=== PATIENT | female | born 1945 | race Caucasian/White ===

== ENCOUNTER 2018-11-23 12:58 | Outpatient (CLI) | payer MEDICARE ==
--- NOTE | 2018-11-23 14:26 | RAD ---
TWO VIEWS CHEST: Comparison: 09-09-16 History: Dyspnea. FINDINGS: Two views of the chest show normal sized cardiomediastinal silhouette. There is no evidence of consol idation, mass, or pleural effusion. The bones are unremarkable. IMPRESSION: No evidence of acute cardiopulmonary disease. POS: [facility]
== END 2018-11-23 12:59 | disposition home or self-care (01) ==
LOC: RAD 12:58
PROVIDERS: ATTEND Internal Medicine Pulmonary Disease
DX: R06.00 Dyspnea, unspecified (principal)
CPT/HCPCS: 71046

== ENCOUNTER 2019-02-01 12:37 | Outpatient (CLI) | payer MEDICARE ==
[2019-02-01 14:17] LABS: ALT (SGPT) 23 U/L (8-55); AST (SGOT) 30 U/L (5-34); Albumin 4.1 g/dL (3.4-4.8); Alkaline Phosphatase 104 U/L (40-150); Anion Gap 15 mmol/L (10-20); BUN (Urea Nitrogen) 16 mg/dL (9.8-20.1); Bilirubin, Total 1.3 mg/dL (0.2-1.2); Calc. Creatinine Clearance 0 mL/min (70-130); Calcium 9.2 mg/dL (7.8-10.44); Carbon Dioxide 31 mmol/L (23-31); Chloride 101 mmol/L (98-107); Estimated GFR-MDRD 54; Globulin 2.7 g/dL (2.4-3.5); Glucose 117 mg/dL (83-110); Potassium 4.6 mmol/L (3.5-5.1); Protein, Total 6.8 g/dL (6.0-8.3); Sodium 142 mmol/L (136-145)
--- NOTE | 2019-02-01 14:27 | RAD ---
CHEST 1 VIEW: DATE: 02/01/2019. TIME: 1:41 p.m. HISTORY: Preoperative evaluation. FINDINGS: Comparison is made with the exam of 11/23/2018. The heart size is normal. The lungs are expanded without focal areas of consolidation, pneumothorace s, or pleural effusions. IMPRESSION: No radiographic evidence of acute cardiopulmonary process. POS: [facility]
[2019-02-01 14:48] LABS: #Eosinphils 0.3 thou/uL (0.0-0.7); #Lymphocytes 0.8 thou/uL (1.20-3.40); #Monocytes 0.4 thou/uL (0.11-0.59); #Neutrophils 3.1 thou/uL (1.40-6.50); %Basophils 0.9 % (0.0-1.0); %Eosinophils 6.6 % (0.0-10.0); %Lymphocytes 17.9 % (21.0-51.0); %Monocytes 7.8 % (0.0-10.0); %Neutrophils 66.8 % (42.0-75.0); Anisocytosis SLIGHT = 6-15 cells (100X) (0-5/hpf); Elliptocytes SLIGHT = 2-5 cells (100X) (0-1/hpf); Hemoglobin 10.7 g/dL (12.0-16.0); Hypochromia SLIGHT = 6-15 cells (100X) (0-5/hpf); MDiff Complete? YES; Mean Corpuscular Hemoglobin 23.4 pg (27.0-31.0); Mean Corpuscular Volume 78.1 fL (78.0-98.0); Mean Platelet Volume 8.5 fL (7.4-10.4); Platelet Count 227 thou/uL (130-400); Platelet Morphology Comment Appears Adequate; Poikilocytosis SLIGHT = 6-15 cells (100X) (0-5/hpf); RBC Distribution Width 14.3 % (11.5-14.5); Red Blood Cell (RBC) Count 4.57 mill/uL (4.20-5.40); White Blood Cell (WBC) Count 4.6 thou/uL (4.8-10.8)
== END 2019-02-01 12:38 | disposition home or self-care (01) ==
LOC: LABBT 12:37
PROVIDERS: ATTEND Internal Medicine Cardiovascular Disease
DX: Z01.818 Encounter for other preprocedural examination (principal); R94.39 Abnormal result of other cardiovascular function study
CPT/HCPCS: 71045; 80053; 85025; 93005; 93010

== ENCOUNTER → 2019-02-15 | Day surgery (SDC) | payer MEDICARE ==
[2019-02-01 12:51] VITALS: BMI 51.5
[~2019-02-15] MED LIST: Bivalirudin 250 MG VIAL ONE; Fentanyl 100 MCG/2 ML VIAL ONE; Heparin 10,000 UNITS/1 ML VIAL ONE; Iopamidol 370 76% 100 ML VIAL ONE; Iopamidol 370 76% 50 ML VIAL FS ONE; Mag-Al 1200 mg/1200 mg/30 ML UDCUP ONE; Mag-Al 1200 mg/1200 mg/30 ML UDCUP PO SCH; Nitroglycerin 0.4 MG TAB (25 Tab Bottle) ONE; Nitroglycerin 100MG/250ML BOT 250 ML ONE
== END ==
LOC: CCL 05:58
PROVIDERS: ATTEND Internal Medicine Cardiovascular Disease
PROC: 4A023N7 Measurement of Cardiac Sampling and Pressure, Left Heart, Percutaneous Approach (ICD-10-PCS; principal; 2019-02-15)
PROC: B2101ZZ Fluoroscopy of Single Coronary Artery using Low Osmolar Contrast (ICD-10-PCS; 2019-02-15)
DX: I25.10 Atherosclerotic heart disease of native coronary artery without angina pectoris (principal); I10 Essential (primary) hypertension; E11.9 Type 2 diabetes mellitus without complications; G47.30 Sleep apnea, unspecified; E66.01 Morbid (severe) obesity due to excess calories; Z68.43 Body mass index [BMI] 50.0-59.9, adult; Z88.5 Allergy status to narcotic agent; Z88.8 Allergy status to other drugs, medicaments and biological substances; Z99.89 Dependence on other enabling machines and devices; Z79.84 Long term (current) use of oral hypoglycemic drugs; Z79.899 Other long term (current) drug therapy
CPT/HCPCS: 76942; 85347; 93458; 93571; C1769; C1887; J0153; J0583; J1644; J3010; Q9967

== ENCOUNTER 2019-06-01 09:31 | Day surgery (SDC) | payer MEDICARE ==
[2019-05-31 14:07] VITALS: BMI 53.0
--- NOTE | 2019-06-01 13:50 | OP ---
DATE OF PROCEDURE: 06/01/2019 PROCEDURES PERFORMED: Esophagogastroduodenoscopy with Howard dilatation. PREMEDICATION: Given by Anesthesiology Department. PREPROCEDURE DIAGNOSIS: Dysphagia. POSTPROCEDURE DIAGNOSES: 1. Visually normal esophagus, status post dilatation with 54 and 58-Icelandic Howard dilator. 2. Status post gastric sleeve. 3. Otherwise, normal upper endoscopy. DESCRIPTION OF PROCEDURE: Written consents were obtained prior to procedure. After adequate sedation, forward-viewing endoscope was advanced down the hypopharynx under direct vision. The esophagus appeared normal. The GE junction was located at 36 cm from incisors. The stomach was entered. The change of gastric sleeve was encountered with normal mucosa. The antrum appears normal with patent pylorus. The duodenum appeared normal including both the second and third portion in the duodenal bulb. Retroflexion in the antrum did not show any abnormality. The endoscope was removed. Dilation was then performed using a 54-Icelandic Howard dilator. Repeat endoscopy did not show any complication. Dilation was then performed using a 58-Icelandic Howard. Repeat endoscopy showed some mucosal erythema at 22 cm from the incisors, but no other change or tear. The instrument was then fully removed. The patient tolerated the procedure well. ASSESSMENT: 1. Normal esophagus, status post dilatation using 54 and 58-Icelandic Howard dilators. 2. Status post gastric sleeve, otherwise normal upper endoscopy. PLAN: Follow up in 4 to 6 weeks. Job ID: [id number]
[2019-06-01] MEDS ORDERED: PROPOFOL 200 MG/20 ML VIAL ONE (16:16)
[2019-06-01] MEDS ORDERED: Lidocaine 1% PF 5 ML VIAL ONE (16:16)
== END 2019-06-01 12:25 | disposition home or self-care (01) ==
LOC: SDC 09:31
PROVIDERS: ATTEND Internal Medicine Gastroenterology
PROC: 0D757ZZ Dilation of Esophagus, Via Natural or Artificial Opening (ICD-10-PCS; principal; 2019-06-01)
PROC: 0DJ08ZZ Inspection of Upper Intestinal Tract, Via Natural or Artificial Opening Endoscopic (ICD-10-PCS; 2019-06-01)
DX: R13.10 Dysphagia, unspecified (principal); K21.9 Gastro-esophageal reflux disease without esophagitis; I10 Essential (primary) hypertension; J45.909 Unspecified asthma, uncomplicated; F41.9 Anxiety disorder, unspecified; M19.90 Unspecified osteoarthritis, unspecified site; G47.30 Sleep apnea, unspecified; R06.00 Dyspnea, unspecified; Z98.84 Bariatric surgery status; Z79.899 Other long term (current) drug therapy; Z88.5 Allergy status to narcotic agent; Z88.7 Allergy status to serum and vaccine; Z88.8 Allergy status to other drugs, medicaments and biological substances; Z91.048 Other nonmedicinal substance allergy status
CPT/HCPCS: J2001; J2704

== ENCOUNTER 2019-09-06 08:05 | Outpatient (CLI) | payer MEDICARE ==
--- NOTE | 2019-09-06 08:24 | RAD ---
EXAM: Chest 2 views: HISTORY: Cough and fever COMPARISON: 05/02/2013 FINDINGS: There is a normal-sized cardiomediastinal silhouette. Perihilar prominence is stable and likely repr esents the normal pulmonary vasculature for this patient. There is no evidence of consolidation, mass, or pleural effusion. The bones are unremarkable. IMPRESSION: No evidence of acute cardiopulmonary disease
== END 2019-09-06 08:06 | disposition home or self-care (01) ==
LOC: BICRAD 08:05
PROVIDERS: ATTEND Family Medicine
DX: R50.9 Fever, unspecified (principal)
CPT/HCPCS: 71046

== ENCOUNTER 2020-03-28 15:34 | Outpatient (CLI) | payer MEDICARE, OTHER ==
--- NOTE | 2020-03-28 16:04 | ULT ---
EXAM: Right lower extremity venous Doppler US HISTORY: Right lower extremity edema and pain FINDINGS: Grayscale, color-flow, Doppler evaluation, spectral analysis of the right lower extremity venous stru ctures is performed with 2-D imaging. The right common femoral, superficial femoral, popliteal, posterior tibial, proximal greater saphenous and profunda femoral veins are imaged. There is normal luminal compressibility, flow, and augmentation the visualized deep venous structures of the right lower extremity. IMPRESSION: No evidence of a deep vein thrombosis in the right lower extremity.
== END 2020-03-28 15:35 | disposition home or self-care (01) ==
LOC: SCSULT 15:34
PROVIDERS: ATTEND Orthopaedic Surgery
DX: I87.2 Venous insufficiency (chronic) (peripheral) (principal)

== ENCOUNTER 2020-12-25 09:20 | Outpatient (CLI) | payer MEDICARE, OTHER | END 2020-12-25 09:21 | disposition home or self-care (01) | LOC: BICMAMMO 09:20 | PROVIDERS: ATTEND Family Medicine | DX: R92.8 Other abnormal and inconclusive findings on diagnostic imaging of breast (principal); R92.1 Mammographic calcification found on diagnostic imaging of breast; Q83.9 Congenital malformation of breast, unspecified | CPT/HCPCS: 77066; G0279; 77063; 77067 ==

== ENCOUNTER 2022-05-02 14:54 | Outpatient (CLI) | payer MEDICARE | END 2022-05-02 14:55 | disposition home or self-care (01) | LOC: BICMAMMO 14:54 | PROVIDERS: ATTEND Family Medicine | DX: R92.8 Other abnormal and inconclusive findings on diagnostic imaging of breast (principal) | CPT/HCPCS: 77066; G0279 ==

== ENCOUNTER 2022-10-15 10:16 | Day surgery (SDC) | payer MEDICARE ==
[2022-10-14 11:14] VITALS: BMI 48.2
[2022-10-15] MEDS ORDERED: Lidocaine 1% PF 5 ML VIAL ONE (12:16)
[2022-10-15] MEDS ORDERED: PROPOFOL 200 MG/20 ML VIAL ONE (12:16)
== END 2022-10-15 14:01 | disposition home or self-care (01) ==
LOC: SDC 10:16
PROVIDERS: ATTEND Internal Medicine Gastroenterology
PROC: 0DB98ZX Excision of Duodenum, Via Natural or Artificial Opening Endoscopic, Diagnostic (ICD-10-PCS; principal; 2022-10-15)
PROC: 0D737ZZ Dilation of Lower Esophagus, Via Natural or Artificial Opening (ICD-10-PCS; 2022-10-15)
PROC: 0DBG8ZX Excision of Left Large Intestine, Via Natural or Artificial Opening Endoscopic, Diagnostic (ICD-10-PCS; 2022-10-15)
PROC: 0DBF8ZX Excision of Right Large Intestine, Via Natural or Artificial Opening Endoscopic, Diagnostic (ICD-10-PCS; 2022-10-15)
DX: D50.9 Iron deficiency anemia, unspecified (principal); K57.31 Diverticulosis of large intestine without perforation or abscess with bleeding; K64.1 Second degree hemorrhoids; K22.2 Esophageal obstruction; K44.9 Diaphragmatic hernia without obstruction or gangrene; R19.7 Diarrhea, unspecified; M19.90 Unspecified osteoarthritis, unspecified site; J45.909 Unspecified asthma, uncomplicated; K21.9 Gastro-esophageal reflux disease without esophagitis; I10 Essential (primary) hypertension; G47.33 Obstructive sleep apnea (adult) (pediatric); E03.9 Hypothyroidism, unspecified; E66.01 Morbid (severe) obesity due to excess calories; Z68.42 Body mass index [BMI] 45.0-49.9, adult; Z79.890 Hormone replacement therapy; Z79.899 Other long term (current) drug therapy; Z88.5 Allergy status to narcotic agent; Z88.7 Allergy status to serum and vaccine; Z91.048 Other nonmedicinal substance allergy status; Z98.84 Bariatric surgery status
CPT/HCPCS: 88305; J2704

== ENCOUNTER 2022-10-27 18:19 | Observation (INO) | payer MEDICARE ==
[2022-10-27] MEDS ORDERED: Fentanyl 100 MCG/2 ML VIAL ONE (18:54)
[2022-10-27 19:11] LABS: #Eosinphils 0.1 thou/uL (0.0-0.7); #Lymphocytes 0.6 thou/uL (1.20-3.40); #Monocytes 0.5 thou/uL (0.11-0.59); #Neutrophils 7.7 thou/uL (1.40-6.50); %Basophils 0.1 % (0.0-1.0); %Eosinophils 0.8 % (0.0-10.0); %Lymphocytes 7.1 % (21.0-51.0); %Monocytes 5.2 % (0.0-10.0); %Neutrophils 86.7 % (42.0-75.0); Hemoglobin 12.9 g/dL (12.0-16.0); Mean Corpuscular HGB CONC 31.6 g/dL (32.0-36.0); Mean Corpuscular Hemoglobin 26.2 pg (27.0-31.0); Mean Corpuscular Volume 83.1 fl (78.0-98.0); Mean Platelet Volume 9.2 fL (7.4-10.4); Platelet Count 186 10x3/uL (130-400); RBC Distribution Width 20.7 % (11.5-14.5); Red Blood Cell (RBC) Count 4.93 mill/uL (4.20-5.40); White Blood Cell (WBC) Count 8.9 10x3/uL (4.8-10.8)
[2022-10-27 19:27] LABS: ALT (SGPT) 18 U/L (8-55); AST (SGOT) 19 U/L (5-34); Alkaline Phosphatase 111 U/L (40-110); Anion Gap 16 mmol/L (10-20); BUN (Urea Nitrogen) 19 mg/dL (9.8-20.1); Bilirubin, Total 1.7 mg/dL (0.2-1.2); Calc. Creatinine Clearance 0 mL/min (70-130); Calcium 9.2 mg/dL (7.8-10.44); Carbon Dioxide 28 mmol/L (23-31); Chloride 99 mmol/L (98-107); Estimated GFR 61; Globulin 2.9 g/dL (2.4-3.5); Glucose 142 mg/dL (83-110); Potassium 4.6 mmol/L (3.5-5.1); Protein, Total 6.9 g/dL (5.8-8.1); Sodium 138 mmol/L (136-145)
[2022-10-27 19:49] LABS: CKMB 3.5 ng/mL (0-6.6)
[2022-10-27 20:44] LABS: SARS-CoV-2 NAA Rapid Test Not Detected (NotDetected)
[2022-10-27 21:31] LABS: Troponin I 0.047 ng/mL (< 0.028)
[2022-10-27 21:52] LABS: Bilirubin 2+ (Negative); Blood, Urine Negative (Negative); Clarity Clear (Clear); Glucose, Urine (Dipstick) Normal (Negative); Ketone, Urine Negative (Negative); Leukocyte Negative Leu/uL (Negative); Nitrite Negative (Negative); Protein, Urine (Dipstick) 20 mg/dL (Neg-Trace); Specific Gravity, Urine 1.023 (1.002-1.036); Urobilinogen 3 mg/dL (Less than 2)
[2022-10-27] MEDS ORDERED: hydrALAZINE 20 MG/ML VIAL ONE (22:29)
[2022-10-27] MEDS ORDERED: hydrOXYzine 25 MG TAB PO PRN (22:57)
[2022-10-27] MEDS ORDERED: Bisacodyl 5 MG TAB PO PRN (22:59)
[2022-10-27] MEDS ORDERED: Senokot S 8.6-50 MG TAB PO PRN (22:59)
[2022-10-27] MEDS ORDERED: Ondansetron PF 4 MG/2 ML Vial IVP PRN (23:00)
[2022-10-27] MEDS ORDERED: Acetaminophen 325 MG TAB PO PRN (23:00)
[2022-10-27] MEDS ORDERED: Ondansetron ODT 4 MG TAB SL PRN (23:00)
[2022-10-27] MEDS ORDERED: Loratadine 10 MG TAB PO PRN (23:03)
[2022-10-28] MEDS ORDERED: Acetaminophen 325 MG TAB ONE (01:58)
[2022-10-28 06:55] LABS: #Eosinphils 0.1 thou/uL (0.0-0.7); #Lymphocytes 0.8 thou/uL (1.20-3.40); #Monocytes 0.5 thou/uL (0.11-0.59); #Neutrophils 4.3 thou/uL (1.40-6.50); %Basophils 0.3 % (0.0-1.0); %Eosinophils 2.3 % (0.0-10.0); %Lymphocytes 14.5 % (21.0-51.0); %Neutrophils 73.9 % (42.0-75.0); Hemoglobin 11.1 g/dL (12.0-16.0); Mean Corpuscular Hemoglobin 26.7 pg (27.0-31.0); Mean Corpuscular Volume 83.5 fl (78.0-98.0); Mean Platelet Volume 10.1 fL (7.4-10.4); Platelet Count 153 10x3/uL (130-400); RBC Distribution Width 20.9 % (11.5-14.5); Red Blood Cell (RBC) Count 4.17 mill/uL (4.20-5.40); White Blood Cell (WBC) Count 5.8 10x3/uL (4.8-10.8)
[2022-10-28 07:09] LABS: Anion Gap 13 mmol/L (10-20); BUN (Urea Nitrogen) 20 mg/dL (9.8-20.1); Calc. Creatinine Clearance 0 mL/min (70-130); Calcium 8.6 mg/dL (7.8-10.44); Carbon Dioxide 28 mmol/L (23-31); Chloride 100 mmol/L (98-107); Estimated GFR 75; Glucose 126 mg/dL (83-110); Potassium 3.9 mmol/L (3.5-5.1); Sodium 137 mmol/L (136-145)
[2022-10-28] MEDS: Mometasone 100 MCG/Formoterol 5 MCG 120 PUFF INHALER INH SCH ×2 (07:11→19:04)
[2022-10-28] MEDS: Hydrochlorothiazide 25 MG TAB PO SCH (10:25)
[2022-10-28] MEDS: Levothyroxine Sodium 125 MCG TAB PO SCH (10:25)
[2022-10-28] MEDS: Venlafaxine HCl XR 75 MG CAP PO SCH (10:25)
[2022-10-28 15:59] VITALS: BMI 48.2
[2022-10-28] MEDS ORDERED: traMADol HCl 50 MG TAB ONE (16:46)
[2022-10-28] MEDS: traMADol HCl 50 MG TAB PO PRN (16:48)
[2022-10-28] MEDS ORDERED: Acetaminophen 500 MG TAB PO SCH (21:45)
[2022-10-28] MEDS ORDERED: Acetaminophen 325 MG TAB PO PRN (21:45)
[2022-10-28] MEDS: Cyclobenzaprine 10 MG TAB PO SCH (22:02)
[2022-10-28] MEDS: Atorvastatin Calcium 20 MG TAB PO SCH (22:04)
[2022-10-28] MEDS: clonazePAM 0.5 MG TAB PO SCH (22:04)
[2022-10-28] MEDS ORDERED: cloNIDine 0.1 MG TAB PO SCH (23:30)
[2022-10-28] MEDS ORDERED: HYDROcodone/Acetaminophen 5/325 mg Tablet PO SCH (23:30)
[2022-10-29] MEDS ORDERED: hydrALAZINE 20 MG/ML VIAL SLOW IVP SCH (02:45)
[2022-10-29] MEDS: Levothyroxine Sodium 125 MCG TAB PO SCH (05:31)
[2022-10-29] MEDS: traMADol HCl 50 MG TAB PO PRN ×3 (05:31→20:34)
[2022-10-29] MEDS: Mometasone 100 MCG/Formoterol 5 MCG 120 PUFF INHALER INH SCH ×2 (07:30→19:10)
[2022-10-29] MEDS ORDERED: hydrALAZINE 20 MG/ML VIAL SLOW IVP PRN (07:53)
[2022-10-29] MEDS ORDERED: Morphine 2 MG/ML VIAL SLOW IVP PRN (08:00)
[2022-10-29] MEDS: Hydrochlorothiazide 25 MG TAB PO SCH (10:30)
[2022-10-29] MEDS: Venlafaxine HCl XR 75 MG CAP PO SCH (10:30)
[2022-10-29] MEDS ORDERED: HYDROcodone/Acetaminophen 5/325 mg Tablet PO PRN (15:00)
[2022-10-29] MEDS ORDERED: Amlodipine 10 MG TAB PO SCH (15:00)
[2022-10-29] MEDS: Atorvastatin Calcium 20 MG TAB PO SCH (20:34)
[2022-10-29] MEDS: Cyclobenzaprine 10 MG TAB PO SCH (20:34)
[2022-10-29] MEDS: clonazePAM 0.5 MG TAB PO SCH (20:36)
[2022-10-30] MEDS: Levothyroxine Sodium 125 MCG TAB PO SCH (05:30)
[2022-10-30] MEDS: Mometasone 100 MCG/Formoterol 5 MCG 120 PUFF INHALER INH SCH ×2 (07:25→08:02)
[2022-10-30] MEDS: traMADol HCl 50 MG TAB PO PRN (07:33)
[2022-10-30] MEDS: Hydrochlorothiazide 25 MG TAB PO SCH (09:06)
[2022-10-30] MEDS: Venlafaxine HCl XR 75 MG CAP PO SCH (09:06)
[2022-10-30] MEDS ORDERED: Amlodipine 10 MG TAB PO SCH (11:45)
[2022-10-30 16:33] VITALS: BP 139/71; TEMP 97.2
[2022-10-31] MEDS ORDERED: Amlodipine 10 MG TAB PO SCH (09:00)
== END 2022-10-30 18:58 | disposition home or self-care (01) ==
LOC: ERS 18:19 → ERHOLD 22:12 → 2NO 22:25
PROVIDERS: ADMIT Internal Medicine; ATTEND Internal Medicine
DX: G89.29 Other chronic pain (principal); M54.50 Low back pain, unspecified; M47.816 Spondylosis without myelopathy or radiculopathy, lumbar region; M17.0 Bilateral primary osteoarthritis of knee; R29.6 Repeated falls; I10 Essential (primary) hypertension; R77.8 Other specified abnormalities of plasma proteins; E78.5 Hyperlipidemia, unspecified; F32.A Depression, unspecified; E03.9 Hypothyroidism, unspecified; J45.909 Unspecified asthma, uncomplicated; G47.33 Obstructive sleep apnea (adult) (pediatric); E11.9 Type 2 diabetes mellitus without complications; M48.061 Spinal stenosis, lumbar region without neurogenic claudication; M81.0 Age-related osteoporosis without current pathological fracture; E66.01 Morbid (severe) obesity due to excess calories; Z68.42 Body mass index [BMI] 45.0-49.9, adult; Z79.899 Other long term (current) drug therapy; Z88.5 Allergy status to narcotic agent; Z88.7 Allergy status to serum and vaccine; Z91.048 Other nonmedicinal substance allergy status; Z20.822 Contact with and (suspected) exposure to COVID-19; W19.XXXA Unspecified fall, initial encounter
CPT/HCPCS: 0240U; 51701; 70450; 71045; 72131; 80048; 80053; 81003; 82553; 83605; 83880; 84443; 84484 ×2; 85025 ×2; 87040; 87086; 93005; 94640 ×3; 94760; 96374; 96375; 97110; 97116 ×2; 97530; 97535; 99285; 36415; 96372; G0378; J0360; J1650; J3010

== ENCOUNTER 2023-02-03 10:12 | Outpatient (CLI) | payer MEDICARE | END 2023-02-03 10:13 | disposition home or self-care (01) | LOC: RAD 10:12 | PROVIDERS: ATTEND Internal Medicine Critical Care Medicine | DX: R06.00 Dyspnea, unspecified (principal) | CPT/HCPCS: 71046 ==

== ENCOUNTER 2023-05-15 13:49 | Outpatient (CLI) | payer MEDICARE | END 2023-05-15 13:50 | disposition home or self-care (01) | LOC: ULT 13:49 | PROVIDERS: ATTEND Family Medicine | DX: R22.42 Localized swelling, mass and lump, left lower limb (principal) | CPT/HCPCS: 76999 ==

== ENCOUNTER 2023-10-22 16:00 | Outpatient (CLI) | payer MEDICARE | END 2023-10-22 16:01 | disposition home or self-care (01) | LOC: SLEEPLAB 16:00 | PROVIDERS: ATTEND Internal Medicine Critical Care Medicine | DX: G47.33 Obstructive sleep apnea (adult) (pediatric) (principal); E11.9 Type 2 diabetes mellitus without complications; I10 Essential (primary) hypertension; J44.9 Chronic obstructive pulmonary disease, unspecified; E66.9 Obesity, unspecified; F32.A Depression, unspecified; R06.83 Snoring; R09.02 Hypoxemia | CPT/HCPCS: 95811 ==

== ENCOUNTER 2023-12-14 15:31 | Inpatient (IN) | payer MEDICARE ==
[2023-12-14 17:31] LABS: Bilirubin Large (Negative); Blood, Urine Negative (Negative); Glucose, Urine (Dipstick) Negative (Negative); Ketone, Urine Negative (Negative); Leukocyte Small (Negative); Nitrite Positive (Negative); Protein, Urine (Dipstick) Negative (Neg-Trace); Urobilinogen 0.2 mg/dL (Less than 2)
[2023-12-14 17:32] LABS: Clarity Clear (Clear)
[2023-12-14 17:39] LABS: CAUTI Indications for Culture Dysuria,urgency,freq; RBC/HPF 0-3 HPF (0-3); Squamous Epithelial 0-3 HPF (0-3); WBC/HPF 21-50 HPF (0-3)
[2023-12-14 17:42] LABS: Bacteria/HPF 1+ HPF (None Seen)
[2023-12-14 17:52] LABS: Urine Culture Reflex Yes Yes
[2023-12-14 18:05] LABS: Influenza A by NAA Not Detected (NotDetected); Influenza B by NAA Not Detected (NotDetected); SARS-CoV-2 NAA Rapid Test Not Detected (NotDetected)
[2023-12-14 18:19] LABS: #Eosinphils 0.2 thou/uL (0.0-0.7); #Monocytes 0.4 thou/uL (0.11-0.59); #Neutrophils 3.4 thou/uL (1.40-6.50); %Basophils 0.4 % (0.0-1.0); %Eosinophils 4.5 % (0.0-10.0); %Monocytes 8.2 % (0.0-10.0); %Neutrophils 76.2 % (42.0-75.0); Hematocrit 39.5 % (36.0-47.0); Hemoglobin 11.6 g/dL (12.0-16.0); Mean Corpuscular HGB CONC 29.4 g/dL (32.0-36.0); Mean Corpuscular Hemoglobin 27.8 pg (27.0-31.0); Mean Corpuscular Volume 94.7 fl (78.0-98.0); Mean Platelet Volume 11.2 fL (7.4-10.4); Platelet Count 124 10x3/uL (130-400); RBC Distribution Width 15.4 % (11.5-14.5); Red Blood Cell (RBC) Count 4.17 mill/uL (4.20-5.40); White Blood Cell (WBC) Count 4.5 10x3/uL (4.8-10.8)
[2023-12-14 18:26] LABS: ALT (SGPT) 9 U/L (8-55); AST (SGOT) 12 U/L (5-34); Albumin 3.1 g/dL (3.4-4.8); Alkaline Phosphatase 101 U/L (40-110); Anion Gap 12 mmol/L (10-20); BUN (Urea Nitrogen) 43 mg/dL (9.8-20.1); Bilirubin, Total 1.2 mg/dL (0.2-1.2); Calc. Creatinine Clearance 0 mL/min (70-130); Calcium 8.8 mg/dL (7.8-10.44); Carbon Dioxide 32 mmol/L (23-31); Chloride 103 mmol/L (98-107); Estimated GFR 39; Globulin 2.8 g/dL (2.4-3.5); Glucose 118 mg/dL (83-110); Potassium 4.6 mmol/L (3.5-5.1); Protein, Total 5.9 g/dL (5.8-8.1); Sodium 142 mmol/L (136-145)
[2023-12-14 18:29] LABS: Troponin I Less than 0.010 ng/mL (< 0.028)
[2023-12-14] MEDS ORDERED: Azithromycin 500 MG VIAL ONE (19:22)
[2023-12-14 19:26] LABS: Base Excess 1.8 mEq/L (-2.0 to +3.0); Calcium, Ionized (venous) 1.09 mmol/L (1.16-1.32); Chloride (VBG) 102 mmol/L (98-106); Hematocrit-VBG 36 % (36.0-47.0); Hemoglobin (Hb) 12.2 g/dL (11.7-16.1); Potassium (VBG) 4.68 mmol/L (3.70-5.30); Sodium 141 mmol/L (133-146); pH (venous) 7.321 (7.32-7.43)
[2023-12-14] MEDS ORDERED: Ipratropium/Albuterol 3 ML NEB ONE (19:33)
[2023-12-14] MEDS ORDERED: Ondansetron PF 4 MG/2 ML Vial ONE (20:01)
[2023-12-14] MEDS ORDERED: Magnesium 2 GM/50 ML BAG (IN WATER) ONE (20:10)
[2023-12-14] MEDS ORDERED: cefTRIAXone (ROCEPHIN) 2 GM VIAL ONE (20:55)
[2023-12-14] MEDS ORDERED: Sodium Chloride 0.9% 100 ML ONE (20:55)
[2023-12-14] MEDS ORDERED: Ondansetron PF 4 MG/2 ML Vial IVP PRN (23:26)
[2023-12-14] MEDS ORDERED: Acetaminophen 325 MG TAB PO PRN (23:26)
[2023-12-15 01:14] VITALS: BMI 51.7
[2023-12-15] MEDS ORDERED: Albuterol 2.5 MG (3 mL) NEB NEB PRN (02:47)
[2023-12-15 04:46] LABS: #Eosinphils 0.1 thou/uL (0.0-0.7); #Monocytes 0.4 thou/uL (0.11-0.59); #Neutrophils 5.4 thou/uL (1.40-6.50); %Basophils 0.2 % (0.0-1.0); %Eosinophils 1.4 % (0.0-10.0); %Lymphocytes 6.6 % (21.0-51.0); %Monocytes 6.3 % (0.0-10.0); Hematocrit 40.2 % (36.0-47.0); Mean Corpuscular HGB CONC 29.9 g/dL (32.0-36.0); Mean Corpuscular Hemoglobin 28.3 pg (27.0-31.0); Mean Corpuscular Volume 94.8 fl (78.0-98.0); Mean Platelet Volume 10.8 fL (7.4-10.4); Platelet Count 134 10x3/uL (130-400); RBC Distribution Width 15.5 % (11.5-14.5); Red Blood Cell (RBC) Count 4.24 mill/uL (4.20-5.40); White Blood Cell (WBC) Count 6.3 10x3/uL (4.8-10.8)
[2023-12-15 05:36] LABS: Anion Gap 13 mmol/L (10-20); BUN (Urea Nitrogen) 35 mg/dL (9.8-20.1); Calc. Creatinine Clearance 78 mL/min (70-130); Calcium 8.9 mg/dL (7.8-10.44); Carbon Dioxide 32 mmol/L (23-31); Chloride 103 mmol/L (98-107); Estimated GFR 47; Glucose 156 mg/dL (83-110); Potassium 5.2 mmol/L (3.5-5.1); Sodium 143 mmol/L (136-145)
[2023-12-15 07:11] LABS: Amphetamine Not Detected (NotDetected); Barbiturates Screen Not Detected (NotDetected); Benzodiazepine Screen Not Detected (NotDetected); Cocaine Metabolite Screen Not Detected (NotDetected); Methadone Not Detected (NotDetected); Methamphetamine Not Detected (NotDetected); Opiate Screen Not Detected (NotDetected); Oxycodone Screen Not Detected (NotDetected); Phencyclidine (PCP) Not Detected (NotDetected); THC/Cannabinoid Screen Not Detected (NotDetected); Tricyclic Screen Not Detected (NotDetected)
[2023-12-15] MEDS: Ipratropium/Albuterol 3 ML NEB NEB SCH (07:41)
[2023-12-15] MEDS: Mometasone 100 MCG/Formoterol 5 MCG 120 PUFF INHALER INH SCH (08:09)
[2023-12-15] MEDS: Atorvastatin Calcium 20 MG TAB PO SCH (09:51)
[2023-12-15] MEDS: Pregabalin 50 MG CAP PO SCH (09:51)
[2023-12-15] MEDS: Enoxaparin 40 MG (0.4 mL) SYRINGE SC SCH (09:52)
[2023-12-15] MEDS ORDERED: clonazePAM 0.5 MG TAB PO SCH (21:00)
[2023-12-15] MEDS: cefTRIAXone\\ROCEPHIN 1 GM in Sodium Chloride 0.9% 100 ML IVPB SCH (21:27)
[2023-12-16 05:27] LABS: #Eosinphils 0.2 thou/uL (0.0-0.7); #Monocytes 0.5 thou/uL (0.11-0.59); #Neutrophils 3.5 thou/uL (1.40-6.50); %Basophils 0.4 % (0.0-1.0); %Eosinophils 3.1 % (0.0-10.0); %Lymphocytes 12.8 % (21.0-51.0); %Monocytes 10.1 % (0.0-10.0); %Neutrophils 73.2 % (42.0-75.0); Hematocrit 35.2 % (36.0-47.0); Hemoglobin 10.2 g/dL (12.0-16.0); Mean Corpuscular Hemoglobin 27.9 pg (27.0-31.0); Mean Corpuscular Volume 96.4 fl (78.0-98.0); Mean Platelet Volume 10.7 fL (7.4-10.4); Platelet Count 124 10x3/uL (130-400); RBC Distribution Width 14.9 % (11.5-14.5); Red Blood Cell (RBC) Count 3.65 mill/uL (4.20-5.40); White Blood Cell (WBC) Count 4.8 10x3/uL (4.8-10.8)
[2023-12-16 05:44] LABS: Anion Gap 10 mmol/L (10-20); BUN (Urea Nitrogen) 27 mg/dL (9.8-20.1); Calc. Creatinine Clearance 98 mL/min (70-130); Carbon Dioxide 37 mmol/L (23-31); Chloride 102 mmol/L (98-107); Estimated GFR 62; Glucose 94 mg/dL (83-110); Potassium 4.8 mmol/L (3.5-5.1); Sodium 144 mmol/L (136-145)
[2023-12-16] MEDS: Levothyroxine Sodium 125 MCG TAB PO SCH (06:57)
[2023-12-17 06:28] LABS: #Eosinphils 0.2 thou/uL (0.0-0.7); #Monocytes 0.4 thou/uL (0.11-0.59); #Neutrophils 2.5 thou/uL (1.40-6.50); %Basophils 0.5 % (0.0-1.0); %Eosinophils 4.5 % (0.0-10.0); %Lymphocytes 17.9 % (21.0-51.0); %Monocytes 10.7 % (0.0-10.0); %Neutrophils 65.9 % (42.0-75.0); Hematocrit 33.8 % (36.0-47.0); Hemoglobin 10.1 g/dL (12.0-16.0); Mean Corpuscular HGB CONC 29.9 g/dL (32.0-36.0); Mean Corpuscular Volume 93.6 fl (78.0-98.0); Mean Platelet Volume 10.9 fL (7.4-10.4); Platelet Count 114 10x3/uL (130-400); RBC Distribution Width 15.1 % (11.5-14.5); Red Blood Cell (RBC) Count 3.61 mill/uL (4.20-5.40); White Blood Cell (WBC) Count 3.7 10x3/uL (4.8-10.8)
[2023-12-17 06:45] LABS: Anion Gap 11 mmol/L (10-20); BUN (Urea Nitrogen) 26 mg/dL (9.8-20.1); Calc. Creatinine Clearance 108 mL/min (70-130); Calcium 8.6 mg/dL (7.8-10.44); Carbon Dioxide 36 mmol/L (23-31); Chloride 101 mmol/L (98-107); Estimated GFR 69; Glucose 102 mg/dL (83-110); Potassium 4.7 mmol/L (3.5-5.1); Sodium 143 mmol/L (136-145)
[2023-12-18] MEDS ORDERED: Fleet Saline Enema 133 ML BOT FS SCH (04:15)
[2023-12-18 07:42] VITALS: TEMP 97.7
[2023-12-18 13:19] VITALS: BP 167/102
== END 2023-12-18 13:19 | disposition home health service (06) | DRG 189 ==
LOC: ERS 15:31 → IMCU/EMU 23:26
PROVIDERS: ADMIT Internal Medicine; ATTEND Internal Medicine
PROC: 5A09457 Assistance with Respiratory Ventilation, 24-96 Consecutive Hours, Continuous Positive Airway Pressure (ICD-10-PCS; principal; 2023-12-15)
PROC: 5A09357 Assistance with Respiratory Ventilation, Less than 24 Consecutive Hours, Continuous Positive Airway Pressure (ICD-10-PCS; 2023-12-17)
DX: J96.22 Acute and chronic respiratory failure with hypercapnia (principal); G93.41 Metabolic encephalopathy; N39.0 Urinary tract infection, site not specified; E87.3 Alkalosis; Z68.43 Body mass index [BMI] 50.0-59.9, adult; E66.2 Morbid (severe) obesity with alveolar hypoventilation; N17.9 Acute kidney failure, unspecified; E11.22 Type 2 diabetes mellitus with diabetic chronic kidney disease; J45.909 Unspecified asthma, uncomplicated; I12.9 Hypertensive chronic kidney disease with stage 1 through stage 4 chronic kidney disease, or unspecified chronic kidney disease; N18.30 Chronic kidney disease, stage 3 unspecified; E03.9 Hypothyroidism, unspecified; Z88.5 Allergy status to narcotic agent; Z88.8 Allergy status to other drugs, medicaments and biological substances; Z88.7 Allergy status to serum and vaccine; Z79.899 Other long term (current) drug therapy; Z79.82 Long term (current) use of aspirin; Z90.710 Acquired absence of both cervix and uterus; Z90.49 Acquired absence of other specified parts of digestive tract; Z98.890 Other specified postprocedural states; Z88.6 Allergy status to analgesic agent
CPT/HCPCS: 36415; 70450; 71045; 80048; 80053; 80306; 81001; 82805; 83605; 83880; 84443; 84484; 85025; 87077; 87086; 87186; 93005; 94660; 96365; 96367; 96375; 97139; J0456; J0696; J1650; J2405; J3475; J3490; J7620

== ENCOUNTER 2024-07-01 12:19 | Inpatient (IN) | payer MEDICARE ==
[2024-07-01 13:11] LABS: Analyzer IN Cardio ER; Base Excess 1.6 mEq/L (-2.0 to +3.0); Chloride (VBG) 100 mmol/L (98-106); Hematocrit-VBG 23 % (36.0-47.0); Hemoglobin (Hb) 7.7 g/dL (11.7-16.1); Sodium 140 mmol/L (133-146); pH (venous) 7.379 (7.32-7.43)
[2024-07-01 13:17] LABS: Calcium, Ionized (venous) 0.75 mmol/L (1.16-1.32); Potassium (VBG) 6.51 mmol/L (3.70-5.30)
[2024-07-01 13:19] LABS: Hemoglobin 8.6 g/dL (12.0-16.0); Mean Corpuscular HGB CONC 29.7 g/dL (32.0-36.0); Mean Corpuscular Hemoglobin 26.1 pg (27.0-31.0); Mean Corpuscular Volume 87.9 fL (78.0-98.0); Mean Platelet Volume 11.9 fL (7.4-10.4); Platelet Count 78 10x3/uL (130-400); RBC Distribution Width 17.4 % (11.5-14.5)
[2024-07-01 13:35] LABS: Troponin I 0.017 ng/mL (< 0.028)
[2024-07-01 13:55] LABS: Band 4 % (5-11); Eosinophils 4 % (0-10); Hypochromia SLIGHT = 6-15 cells HPF (0-5); Large Platelets 3.9 % (0-5); Lymphocytes 3 % (21-51); Microcytosis SLIGHT = 6-15 cells HPF (0-5); Monocytes 10 % (0-10); Neutrophil 79 % (42-75); Ovalocytes SLIGHT = 2-5 cells HPF (0-1); Platelet Adequacy Comment Platelets Decreased; Polychromasia MODERATE = 3-4 cells HPF (0-2)
[2024-07-01] MEDS ORDERED: CALCIUM GLUC 1 GM/NS 50 ML IV Bag ONE (14:33)
[2024-07-01 16:03] LABS: Bacteria/HPF 2+ HPF (None Seen); Bilirubin 2+ (Negative); Blood, Urine 1+ (Negative); CAUTI Indications for Culture Alt mental st,lethar; Clarity Extra Turbid (Clear); Glucose, Urine (Dipstick) Normal (Negative); Ketone, Urine Trace mg/dL (Negative); Leukocyte 500 Leu/uL (Negative); Nitrite Negative (Negative); Protein, Urine (Dipstick) 30 mg/dL (Neg-Trace); RBC/HPF 21-50 HPF (0-3); Specific Gravity, Urine 1.016 (1.002-1.036); Urobilinogen Normal mg/dL (Less than 2); WBC/HPF Greater than 50 HPF (0-3)
[2024-07-01 16:07] LABS: Urine Culture Reflex Yes Yes
[2024-07-01] MEDS ORDERED: cefTRIAXone (ROCEPHIN) 2 GM VIAL ONE (16:47)
[2024-07-01] MEDS ORDERED: Sodium Chloride 0.9% 100 ML ONE (16:50)
[2024-07-01 16:51] LABS: ALT (SGPT) Less than 5 U/L (8-55); AST (SGOT) 9 U/L (5-34); Albumin 2.2 g/dL (3.4-4.8); Alkaline Phosphatase 53 U/L (40-110); Anion Gap 23 mmol/L (10-20); Bilirubin, Total 0.8 mg/dL (0.2-1.2); Calc. Creatinine Clearance 0 mL/min (70-130); Calcium 6.2 mg/dL (7.8-10.44); Carbon Dioxide 29 mmol/L (23-31); Chloride 101 mmol/L (98-107); Estimated GFR 6; Globulin 1.8 g/dL (2.4-3.5); Glucose 79 mg/dL (83-110); Potassium 5.8 mmol/L (3.5-5.1); Sodium 147 mmol/L (136-145)
[2024-07-01 17:03] LABS: BUN (Urea Nitrogen) 116 mg/dL (9.8-20.1)
[2024-07-01] MEDS ORDERED: Sodium Bicarb 50 MEQ/50 ML Abboject 8.4% SYRINGE ONE (17:36)
[2024-07-01] MEDS ORDERED: Senokot S 8.6-50 MG TAB PO PRN (17:54)
[2024-07-01] MEDS ORDERED: Calcium Carbonate 500 MG ChewTAB PO PRN (17:54)
[2024-07-01 18:22] LABS: Creatinine, Urine 134.64 mg/dL (47-110)
[2024-07-01] MEDS: Atorvastatin Calcium 20 MG TAB PO SCH (22:14)
[2024-07-01] MEDS: clonazePAM 0.5 MG TAB PO SCH (22:14)
[2024-07-01] MEDS: Albumin 25% 25 GM (100 mL) BOT IVPB SCH (22:14)
[2024-07-01] MEDS: Pregabalin 50 MG CAP PO SCH (22:15)
[2024-07-01] MEDS: D5 1/4 NS 500 ML IV SCH (22:23)
[2024-07-01] MEDS: LOKELMA 10 GM PACKET PO SCH (22:40)
[2024-07-01 22:54] LABS: Anion Gap 23 mmol/L (10-20); BUN (Urea Nitrogen) 124 mg/dL (9.8-20.1); Calc. Creatinine Clearance 14 mL/min (70-130); Calcium 5.9 mg/dL (7.8-10.44); Carbon Dioxide 29 mmol/L (23-31); Chloride 100 mmol/L (98-107); Estimated GFR 6; Glucose 77 mg/dL (83-110); Potassium 6.1 mmol/L (3.5-5.1); Sodium 146 mmol/L (136-145)
[2024-07-01] MEDS ORDERED: Ipratropium/Albuterol 3 ML NEB NEB PRN (23:21)
[2024-07-02] MEDS: Albumin 25% 25 GM (100 mL) BOT IVPB SCH (04:14)
[2024-07-02 04:50] LABS: #Basophils Less than 0.03 10x3/uL (0.0-0.2); %Basophils 0.4 % (0.0-1.0); %Eosinophils 2.9 % (0.0-10.0); %Lymphocytes 7.2 % (21.0-51.0); %Monocytes 5.1 % (0.0-10.0); Hematocrit 28.3 % (36.0-47.0); Hemoglobin 8.1 g/dL (12.0-16.0); Mean Corpuscular HGB CONC 28.6 g/dL (32.0-36.0); Mean Corpuscular Hemoglobin 25.6 pg (27.0-31.0); Mean Corpuscular Volume 89.3 fL (78.0-98.0); Mean Platelet Volume 12.1 fL (7.4-10.4); Platelet Count 81 10x3/uL (130-400); RBC Distribution Width 17.4 % (11.5-14.5); Red Blood Cell (RBC) Count 3.17 mill/uL (4.20-5.40)
[2024-07-02 05:17] LABS: ALT (SGPT) Less than 5 U/L (8-55); AST (SGOT) 12 U/L (5-34); Albumin 2.7 g/dL (3.4-4.8); Alkaline Phosphatase 68 U/L (40-110); Anion Gap 23 mmol/L (10-20); BUN (Urea Nitrogen) 124 mg/dL (9.8-20.1); Bilirubin, Total 0.9 mg/dL (0.2-1.2); Calc. Creatinine Clearance 14 mL/min (70-130); Calcium 6.7 mg/dL (7.8-10.44); Carbon Dioxide 29 mmol/L (23-31); Chloride 100 mmol/L (98-107); Estimated GFR 6; Globulin 2.5 g/dL (2.4-3.5); Glucose 75 mg/dL (83-110); Iron 43 ug/dL (50-170); Iron Binding Capacity, Total 216 mcg/dL (265-497); Potassium 5.3 mmol/L (3.5-5.1); Protein, Total 5.2 g/dL (5.8-8.1); Sodium 147 mmol/L (136-145)
[2024-07-02] MEDS: Levothyroxine Sodium 125 MCG TAB PO SCH (06:19)
[2024-07-02] MEDS ORDERED: D5 1/4 NS 500 ML IV SCH (08:07)
[2024-07-02] MEDS: D5 1/4 NS 1,000 ML IV SCH (09:50)
[2024-07-02] MEDS: Pantoprazole DR 40 MG TAB PO SCH (09:50)
[2024-07-02] MEDS: Pregabalin 50 MG CAP PO SCH (09:50)
[2024-07-02] MEDS: Venlafaxine HCl XR 75 MG CAP PO SCH (09:51)
[2024-07-02] MEDS: cefTRIAXone\\ROCEPHIN 1 GM in Sodium Chloride 0.9% 100 ML IVPB SCH (16:36)
[2024-07-02] MEDS: Midodrine HCl 5 MG TAB PO SCH ×2 (16:38→20:38)
[2024-07-02 16:56] LABS: Albumin 3.3 g/dL (3.4-4.8); Anion Gap 25 mmol/L (10-20); BUN (Urea Nitrogen) 121 mg/dL (9.8-20.1); BUN/Creatinine Ratio 17.56; Calc. Creatinine Clearance 14 mL/min (70-130); Calcium 6.8 mg/dL (7.8-10.44); Carbon Dioxide 29 mmol/L (23-31); Chloride 98 mmol/L (98-107); Estimated GFR 6; Glucose 116 mg/dL (83-110); Phosphorus 7.2 mg/dL (2.3-4.7); Potassium 5.2 mmol/L (3.5-5.1); Sodium 147 mmol/L (136-145)
[2024-07-02] MEDS: Octreotide Acetate 100 MCG/ML VIAL SC SCH ×2 (17:09→23:11)
[2024-07-02] MEDS: Calcium Chloride 13.6 MEQ in Sodium Chloride 0.9% 100 ML IVPB SCH (19:02)
[2024-07-02] MEDS ORDERED: Midodrine HCl 5 MG TAB PO SCH (21:00)
[2024-07-03 05:43] LABS: ALT (SGPT) 5 U/L (8-55); AST (SGOT) 11 U/L (5-34); Albumin 3.5 g/dL (3.4-4.8); Alkaline Phosphatase 59 U/L (40-110); Anion Gap 23 mmol/L (10-20); BUN (Urea Nitrogen) 125 mg/dL (9.8-20.1); Bilirubin, Total 1.1 mg/dL (0.2-1.2); Calc. Creatinine Clearance 13 mL/min (70-130); Calcium 7.2 mg/dL (7.8-10.44); Carbon Dioxide 29 mmol/L (23-31); Chloride 98 mmol/L (98-107); Estimated GFR 5; Globulin 2.3 g/dL (2.4-3.5); Glucose 135 mg/dL (83-110); Magnesium 2.1 mg/dL (1.6-2.6); Potassium 5.3 mmol/L (3.5-5.1); Protein, Total 5.8 g/dL (5.8-8.1); Sodium 145 mmol/L (136-145)
[2024-07-03 05:45] LABS: #Basophils Less than 0.03 10x3/uL (0.0-0.2); %Basophils 0.3 % (0.0-1.0); %Eosinophils 3.2 % (0.0-10.0); %Lymphocytes 6.1 % (21.0-51.0); %Monocytes 5.1 % (0.0-10.0); %Neutrophils 84.8 % (42.0-75.0); Hematocrit 26.1 % (36.0-47.0); Hemoglobin 7.5 g/dL (12.0-16.0); Mean Corpuscular HGB CONC 28.7 g/dL (32.0-36.0); Mean Corpuscular Hemoglobin 26.2 pg (27.0-31.0); Mean Corpuscular Volume 91.3 fL (78.0-98.0); Mean Platelet Volume 11.7 fL (7.4-10.4); Platelet Count 74 10x3/uL (130-400); RBC Distribution Width 17.6 % (11.5-14.5); Red Blood Cell (RBC) Count 2.86 mill/uL (4.20-5.40)
[2024-07-03 09:33] LABS: INR-International Normal Ratio 1.7; Prothrombin Time 19.9 sec (12.0-14.7)
[2024-07-03 09:34] LABS: PTT 27.3 sec (22.9-36.1)
[2024-07-03 10:37] LABS: HBSAB Concentration Less than 8.00 mIU/mL; HBsAg Index 0.26 S/CO (0-0.99); Hep B Core Total Ab NONREACTIVE (NonReactive); Hep B Core Total Index 0.07 S/CO (0-0.79); Hep B Surf AB NONREACTIVE (NonReactive); Hep B Surf Ag NONREACTIVE S/CO (NonReactive); Hep C IgG Ab NONREACTIVE S/CO (NonReactive); Hep C Index 0.12 S/CO (0-0.79)
[2024-07-03] MEDS: Calcium Chloride 13.6 MEQ in Sodium Chloride 0.9% 100 ML IVPB SCH (12:01)
[2024-07-03] MEDS: D5 1/4 NS 1,000 ML IV SCH (12:02)
[2024-07-04] MEDS ORDERED: Vancomycin Dialysis Sliding Scale (Wt > 99) FS SCH (09:15)
[2024-07-04] MEDS: Vancomycin (BATCH) 2.5 GM in Premix 1 BAG IVPB SCH (09:16)
[2024-07-04] MEDS: Ondansetron PF 4 MG/2 ML Vial IVP PRN (09:21)
[2024-07-04] MEDS: Vancomycin 1 GM in Premix 1 BAG IVPB SCH (09:34)
[2024-07-04 11:11] LABS: #Basophils Less than 0.03 10x3/uL (0.0-0.2); %Basophils 0.5 % (0.0-1.0); %Eosinophils 4.3 % (0.0-10.0); %Lymphocytes 6.5 % (21.0-51.0); %Monocytes 8.4 % (0.0-10.0); %Neutrophils 79.6 % (42.0-75.0); Hematocrit 26.2 % (36.0-47.0); Hemoglobin 7.6 g/dL (12.0-16.0); Mean Corpuscular Hemoglobin 26.2 pg (27.0-31.0); Mean Corpuscular Volume 90.3 fL (78.0-98.0); Mean Platelet Volume 11.2 fL (7.4-10.4); Platelet Count 87 10x3/uL (130-400); RBC Distribution Width 17.7 % (11.5-14.5)
[2024-07-04 11:36] LABS: ALT (SGPT) Less than 5 U/L (8-55); AST (SGOT) 11 U/L (5-34); Albumin 3.2 g/dL (3.4-4.8); Alkaline Phosphatase 62 U/L (40-110); Anion Gap 18 mmol/L (10-20); BUN (Urea Nitrogen) 85 mg/dL (9.8-20.1); Calc. Creatinine Clearance 17 mL/min (70-130); Calcium 7.7 mg/dL (7.8-10.44); Carbon Dioxide 30 mmol/L (23-31); Chloride 100 mmol/L (98-107); Estimated GFR 7; Globulin 2.3 g/dL (2.4-3.5); Glucose 125 mg/dL (83-110); Potassium 4.7 mmol/L (3.5-5.1); Protein, Total 5.5 g/dL (5.8-8.1); Sodium 143 mmol/L (136-145)
[2024-07-04] MEDS: Aspirin 81 mg Enteric Coated Tablet PO SCH (12:22)
[2024-07-04] MEDS ORDERED: Heparin 10,000 UNITS/ 10 ML VIAL ONE (14:07)
[2024-07-04] MEDS ORDERED: Sodium Ferric Gluconate 250 MG in Sodium Chloride 0.9% 250 ML 250 ML IVPB SCH (14:15)
[2024-07-04] MEDS: Iron Sucrose Complex 200 MG in Sodium Chloride 0.9% 100 ML IVPB SCH (14:55)
[2024-07-04 19:54] LABS: Vancomycin, Trough 7.3 ug/mL
[2024-07-04] MEDS: Vancomycin (BATCH) 1.5 GM in Premix 1 BAG IVPB SCH (22:58)
[2024-07-05 05:15] LABS: #Basophils Less than 0.03 10x3/uL (0.0-0.2); %Basophils 0.3 % (0.0-1.0); %Eosinophils 5.2 % (0.0-10.0); %Lymphocytes 7.9 % (21.0-51.0); %Monocytes 10.6 % (0.0-10.0); %Neutrophils 75.5 % (42.0-75.0); Hematocrit 27.2 % (36.0-47.0); Hemoglobin 7.6 g/dL (12.0-16.0); Mean Corpuscular HGB CONC 27.9 g/dL (32.0-36.0); Mean Corpuscular Hemoglobin 25.9 pg (27.0-31.0); Mean Corpuscular Volume 92.5 fL (78.0-98.0); Mean Platelet Volume 11.3 fL (7.4-10.4); Platelet Count 85 10x3/uL (130-400); RBC Distribution Width 17.6 % (11.5-14.5); Red Blood Cell (RBC) Count 2.94 mill/uL (4.20-5.40)
[2024-07-05 05:23] LABS: ALT (SGPT) 5 U/L (8-55); AST (SGOT) 10 U/L (5-34); Albumin 3.2 g/dL (3.4-4.8); Alkaline Phosphatase 59 U/L (40-110); Anion Gap 18 mmol/L (10-20); BUN (Urea Nitrogen) 45 mg/dL (9.8-20.1); Bilirubin, Total 1.1 mg/dL (0.2-1.2); Calc. Creatinine Clearance 25 mL/min (70-130); Calcium 8.1 mg/dL (7.8-10.44); Carbon Dioxide 27 mmol/L (23-31); Chloride 101 mmol/L (98-107); Estimated GFR 11; Globulin 2.4 g/dL (2.4-3.5); Glucose 100 mg/dL (83-110); Magnesium 1.9 mg/dL (1.6-2.6); Potassium 4.1 mmol/L (3.5-5.1); Protein, Total 5.6 g/dL (5.8-8.1); Sodium 142 mmol/L (136-145)
[2024-07-05] MEDS: Levothyroxine 150 MCG TAB PO SCH (05:46)
[2024-07-05] MEDS ORDERED: Iron Sucrose Complex 200 MG in Sodium Chloride 0.9% 100 ML IVPB SCH (09:15)
[2024-07-05] MEDS: Ergocalciferol 1.25 MG(50,000 UNITS) CAP PO SCH (09:21)
[2024-07-05 09:32] LABS: Vancomycin, Trough 17.1 ug/mL
[2024-07-05] MEDS: Lactulose 20 GM (30 mL) UDCUP PO SCH ×2 (09:53→21:28)
[2024-07-05] MEDS ORDERED: Heparin 10,000 UNITS/ 10 ML VIAL ONE (14:09)
[2024-07-05] MEDS: EPOETIN ALFA-EPBX 10,000 UNITS/ML VIAL SC SCH (15:55)
[2024-07-05] MEDS: Vancomycin 1 GM in Premix 1 BAG IVPB SCH (15:56)
[2024-07-05] MEDS: Sodium Ferric Gluconate 250 MG in Sodium Chloride 0.9% 250 ML 250 ML IVPB SCH (16:11)
[2024-07-05] MEDS: Heparin 5,000 UNITS/ML VIAL SC SCH (21:28)
[2024-07-05] MEDS: Pantoprazole DR 40 MG TAB PO SCH (21:29)
[2024-07-06 06:40] LABS: #Basophils Less than 0.03 10x3/uL (0.0-0.2); %Basophils 0.2 % (0.0-1.0); %Eosinophils 6.2 % (0.0-10.0); %Lymphocytes 5.9 % (21.0-51.0); %Neutrophils 77.2 % (42.0-75.0); Hematocrit 30.1 % (36.0-47.0); Hemoglobin 8.4 g/dL (12.0-16.0); Mean Corpuscular HGB CONC 27.9 g/dL (32.0-36.0); Mean Corpuscular Hemoglobin 26.2 pg (27.0-31.0); Mean Corpuscular Volume 93.8 fL (78.0-98.0); Mean Platelet Volume 11.5 fL (7.4-10.4); Platelet Count 95 10x3/uL (130-400); RBC Distribution Width 17.4 % (11.5-14.5); Red Blood Cell (RBC) Count 3.21 mill/uL (4.20-5.40)
[2024-07-06 06:46] LABS: ALT (SGPT) 6 U/L (8-55); AST (SGOT) 10 U/L (5-34); Albumin 3.4 g/dL (3.4-4.8); Alkaline Phosphatase 67 U/L (40-110); Anion Gap 15 mmol/L (10-20); BUN (Urea Nitrogen) 19 mg/dL (9.8-20.1); Bilirubin, Total 1.1 mg/dL (0.2-1.2); Calc. Creatinine Clearance 34 mL/min (70-130); Calcium 8.8 mg/dL (7.8-10.44); Carbon Dioxide 28 mmol/L (23-31); Chloride 99 mmol/L (98-107); Estimated GFR 18; Globulin 2.4 g/dL (2.4-3.5); Glucose 103 mg/dL (83-110); Potassium 3.8 mmol/L (3.5-5.1); Protein, Total 5.8 g/dL (5.8-8.1); Sodium 138 mmol/L (136-145)
[2024-07-06 07:38] LABS: Vancomycin, Trough 22.2 ug/mL
[2024-07-06] MEDS: Midodrine HCl 5 MG TAB PO SCH (09:26)
[2024-07-06] MEDS: Pregabalin 25 MG CAP PO SCH (21:12)
[2024-07-07 04:17] LABS: ALT (SGPT) 6 U/L (8-55); AST (SGOT) 9 U/L (5-34); Albumin 3.1 g/dL (3.4-4.8); Alkaline Phosphatase 64 U/L (40-110); Anion Gap 13 mmol/L (10-20); BUN (Urea Nitrogen) 23 mg/dL (9.8-20.1); Bilirubin, Total 0.9 mg/dL (0.2-1.2); Calc. Creatinine Clearance 28 mL/min (70-130); Calcium 8.6 mg/dL (7.8-10.44); Carbon Dioxide 27 mmol/L (23-31); Chloride 102 mmol/L (98-107); Estimated GFR 14; Globulin 2.2 g/dL (2.4-3.5); Glucose 92 mg/dL (83-110); Potassium 3.8 mmol/L (3.5-5.1); Protein, Total 5.3 g/dL (5.8-8.1); Sodium 138 mmol/L (136-145)
[2024-07-07 08:01] LABS: Vancomycin, Trough 21.3 ug/mL
[2024-07-07] MEDS: Pregabalin 50 MG CAP PO SCH (09:04)
[2024-07-08 04:47] LABS: #Basophils Less than 0.03 10x3/uL (0.0-0.2); %Eosinophils 6.9 % (0.0-10.0); %Lymphocytes 5.6 % (21.0-51.0); %Monocytes 8.5 % (0.0-10.0); %Neutrophils 78.2 % (42.0-75.0); Hematocrit 28.2 % (36.0-47.0); Mean Corpuscular HGB CONC 28.4 g/dL (32.0-36.0); Mean Corpuscular Hemoglobin 26.4 pg (27.0-31.0); Mean Corpuscular Volume 93.1 fL (78.0-98.0); Mean Platelet Volume 11.3 fL (7.4-10.4); Platelet Count 77 10x3/uL (130-400); RBC Distribution Width 17.2 % (11.5-14.5); Red Blood Cell (RBC) Count 3.03 mill/uL (4.20-5.40)
[2024-07-08 05:04] LABS: ALT (SGPT) 6 U/L (8-55); AST (SGOT) 8 U/L (5-34); Albumin 2.9 g/dL (3.4-4.8); Alkaline Phosphatase 62 U/L (40-110); Anion Gap 13 mmol/L (10-20); BUN (Urea Nitrogen) 28 mg/dL (9.8-20.1); Bilirubin, Total 0.8 mg/dL (0.2-1.2); Calc. Creatinine Clearance 23 mL/min (70-130); Calcium 8.5 mg/dL (7.8-10.44); Carbon Dioxide 29 mmol/L (23-31); Chloride 101 mmol/L (98-107); Estimated GFR 11; Globulin 2.2 g/dL (2.4-3.5); Glucose 81 mg/dL (83-110); Potassium 3.7 mmol/L (3.5-5.1); Protein, Total 5.1 g/dL (5.8-8.1); Sodium 139 mmol/L (136-145)
[2024-07-08 07:54] LABS: Vancomycin, Trough 19.7 ug/mL
[2024-07-08] MEDS ORDERED: Heparin 10,000 UNITS/ 10 ML VIAL ONE (10:49)
[2024-07-08] MEDS: Tuberculin PPD 0.1 ML SYRINGE (10 TEST VIAL) I-DERMAL SCH (16:54)
[2024-07-08] MEDS: Vancomycin 1 GM in Premix 1 BAG IVPB SCH (16:54)
[2024-07-09 04:53] LABS: ALT (SGPT) 5 U/L (8-55); AST (SGOT) 9 U/L (5-34); Alkaline Phosphatase 63 U/L (40-110); Anion Gap 13 mmol/L (10-20); BUN (Urea Nitrogen) 12 mg/dL (9.8-20.1); Calc. Creatinine Clearance 36 mL/min (70-130); Calcium 8.5 mg/dL (7.8-10.44); Carbon Dioxide 26 mmol/L (23-31); Chloride 102 mmol/L (98-107); Estimated GFR 19; Globulin 2.3 g/dL (2.4-3.5); Glucose 87 mg/dL (83-110); Potassium 3.6 mmol/L (3.5-5.1); Protein, Total 5.3 g/dL (5.8-8.1); Sodium 137 mmol/L (136-145)
[2024-07-10 05:15] LABS: #Basophils Less than 0.03 10x3/uL (0.0-0.2); %Basophils 0.5 % (0.0-1.0); %Eosinophils 6.7 % (0.0-10.0); %Lymphocytes 7.2 % (21.0-51.0); %Monocytes 10.3 % (0.0-10.0); %Neutrophils 74.8 % (42.0-75.0); Hematocrit 28.4 % (36.0-47.0); Mean Corpuscular HGB CONC 28.2 g/dL (32.0-36.0); Mean Corpuscular Hemoglobin 26.4 pg (27.0-31.0); Mean Corpuscular Volume 93.7 fL (78.0-98.0); Mean Platelet Volume 10.9 fL (7.4-10.4); Platelet Count 77 10x3/uL (130-400); RBC Distribution Width 17.5 % (11.5-14.5); Red Blood Cell (RBC) Count 3.03 mill/uL (4.20-5.40)
[2024-07-10] MEDS: READ PPD TEST SITE PO SCH (17:02)
[2024-07-11 07:53] LABS: Albumin 2.8 g/dL (3.4-4.8); Anion Gap 14 mmol/L (10-20); BUN (Urea Nitrogen) 19 mg/dL (9.8-20.1); BUN/Creatinine Ratio 4.95; Calc. Creatinine Clearance 23 mL/min (70-130); Calcium 8.6 mg/dL (7.8-10.44); Carbon Dioxide 28 mmol/L (23-31); Chloride 102 mmol/L (98-107); Estimated GFR 11; Glucose 84 mg/dL (83-110); Phosphorus 2.7 mg/dL (2.3-4.7); Potassium 3.9 mmol/L (3.5-5.1); Sodium 140 mmol/L (136-145)
[2024-07-11] MEDS ORDERED: Heparin 10,000 UNITS/ 10 ML VIAL ONE ×2 (10:30→10:40)
[2024-07-11] MEDS ORDERED: Lidocaine 1% (PF) 30 ML VIAL ONE (10:40)
[2024-07-11] MEDS ORDERED: Bupivacaine 0.25% HCL 30 ML VIAL ONE (10:40)
[2024-07-11] MEDS ORDERED: EPINEPHrine 1 MG/ML VIAL ONE (10:40)
[2024-07-11] MEDS ORDERED: Propofol 500 MG/50 ML VIAL ONE (10:52)
[2024-07-11] MEDS ORDERED: fentaNYL PF 100 MCG/2 ML SYRINGE ONE (10:52)
[2024-07-11] MEDS ORDERED: Midazolam HCl 2 mg/2 ml Vial ONE (10:52)
[2024-07-11] MEDS ORDERED: Ketamine In 0.9 % NaCl 50 MG/5 ML SYRINGE ONE (10:53)
[2024-07-11] MEDS ORDERED: CEFAZOLIN 2 GM VIAL ONE (11:19)
[2024-07-11] MEDS ORDERED: Sodium Chloride 0.9% 100 ML ONE (11:19)
[2024-07-11] MEDS ORDERED: PHENYLEPHRINE-NS 100 MCG/ML 10 ML SYRINGE ONE (11:39)
[2024-07-11] MEDS ORDERED: Rocuronium Bromide 10 MG/ML (10ML VIAL) ONE (11:39)
[2024-07-11] MEDS ORDERED: SUGAMMADEX SODIUM 200 MG/2 ML VIAL ONE (12:10)
[2024-07-11] MEDS: Midodrine HCl 5 MG TAB PO SCH (15:16)
[2024-07-12 06:41] LABS: #Basophils Less than 0.03 10x3/uL (0.0-0.2); %Basophils 0.6 % (0.0-1.0); %Eosinophils 8.4 % (0.0-10.0); %Lymphocytes 8.1 % (21.0-51.0); %Monocytes 13.4 % (0.0-10.0); %Neutrophils 69.2 % (42.0-75.0); Hematocrit 28.4 % (36.0-47.0); Hemoglobin 8.1 g/dL (12.0-16.0); Mean Corpuscular HGB CONC 28.5 g/dL (32.0-36.0); Mean Corpuscular Hemoglobin 25.9 pg (27.0-31.0); Mean Corpuscular Volume 90.7 fL (78.0-98.0); Mean Platelet Volume 11.4 fL (7.4-10.4); Platelet Count 77 10x3/uL (130-400); RBC Distribution Width 18.3 % (11.5-14.5); Red Blood Cell (RBC) Count 3.13 mill/uL (4.20-5.40)
[2024-07-12] MEDS ORDERED: Tuberculin PPD 0.1 ML SYRINGE (10 TEST VIAL) I-DERMAL SCH (09:45)
[2024-07-13] MEDS ORDERED: Heparin 10,000 UNITS/ 10 ML VIAL ONE (09:16)
[2024-07-13] MEDS ORDERED: Albumin 25% 25 GM (100 mL) BOT IVPB PRN (10:46)
[2024-07-13] MEDS: Ondansetron ODT 4 MG TAB PO PRN (21:59)
[2024-07-14 06:04] LABS: #Basophils Less than 0.03 10x3/uL (0.0-0.2); %Basophils 0.4 % (0.0-1.0); %Eosinophils 4.9 % (0.0-10.0); %Lymphocytes 13.3 % (21.0-51.0); %Monocytes 14.8 % (0.0-10.0); %Neutrophils 66.2 % (42.0-75.0); Hematocrit 28.9 % (36.0-47.0); Hemoglobin 8.5 g/dL (12.0-16.0); Mean Corpuscular HGB CONC 29.4 g/dL (32.0-36.0); Mean Corpuscular Hemoglobin 26.8 pg (27.0-31.0); Mean Corpuscular Volume 91.2 fL (78.0-98.0); Mean Platelet Volume 11.7 fL (7.4-10.4); Platelet Count 74 10x3/uL (130-400); RBC Distribution Width 18.9 % (11.5-14.5); Red Blood Cell (RBC) Count 3.17 mill/uL (4.20-5.40)
[2024-07-15 07:52] LABS: Anion Gap 10 mmol/L (10-20); BUN (Urea Nitrogen) 11 mg/dL (9.8-20.1); Calc. Creatinine Clearance 30 mL/min (70-130); Calcium 8.6 mg/dL (7.8-10.44); Carbon Dioxide 29 mmol/L (23-31); Chloride 106 mmol/L (98-107); Estimated GFR 17; Glucose 83 mg/dL (83-110); Potassium 4.3 mmol/L (3.5-5.1); Sodium 141 mmol/L (136-145)
[2024-07-15] MEDS ORDERED: Heparin 10,000 UNITS/ 10 ML VIAL ONE (10:11)
[2024-07-15] MEDS: Nystatin Powder 15 GM BOT TOP SCH (21:35)
[2024-07-16 06:07] LABS: #Basophils Less than 0.03 10x3/uL (0.0-0.2); %Basophils 0.5 % (0.0-1.0); %Eosinophils 7.1 % (0.0-10.0); %Lymphocytes 12.9 % (21.0-51.0); %Monocytes 11.5 % (0.0-10.0); %Neutrophils 67.5 % (42.0-75.0); Hematocrit 30.8 % (36.0-47.0); Hemoglobin 8.7 g/dL (12.0-16.0); Mean Corpuscular HGB CONC 28.2 g/dL (32.0-36.0); Mean Corpuscular Hemoglobin 26.6 pg (27.0-31.0); Mean Corpuscular Volume 94.2 fL (78.0-98.0); Mean Platelet Volume 10.5 fL (7.4-10.4); Platelet Count 91 10x3/uL (130-400); RBC Distribution Width 19.2 % (11.5-14.5); Red Blood Cell (RBC) Count 3.27 mill/uL (4.20-5.40)
[2024-07-17 06:29] LABS: Anion Gap 13 mmol/L (10-20); BUN (Urea Nitrogen) 14 mg/dL (9.8-20.1); Calc. Creatinine Clearance 27 mL/min (70-130); Calcium 8.9 mg/dL (7.8-10.44); Carbon Dioxide 28 mmol/L (23-31); Chloride 102 mmol/L (98-107); Estimated GFR 15; Glucose 92 mg/dL (83-110); Potassium 4.1 mmol/L (3.5-5.1); Sodium 139 mmol/L (136-145)
[2024-07-17] MEDS: traZODone HCl 50 MG TAB PO PRN (20:47)
[2024-07-18 06:43] LABS: Anion Gap 13 mmol/L (10-20); BUN (Urea Nitrogen) 19 mg/dL (9.8-20.1); Calc. Creatinine Clearance 23 mL/min (70-130); Calcium 8.7 mg/dL (7.8-10.44); Carbon Dioxide 26 mmol/L (23-31); Chloride 104 mmol/L (98-107); Estimated GFR 12; Glucose 87 mg/dL (83-110); Potassium 4.2 mmol/L (3.5-5.1); Sodium 139 mmol/L (136-145)
[2024-07-18 08:02] LABS: #Basophils 0.04 10x3/uL (0.0-0.2); %Basophils 1.2 % (0.0-1.0); %Eosinophils 5.2 % (0.0-10.0); %Lymphocytes 16.1 % (21.0-51.0); %Monocytes 11.8 % (0.0-10.0); %Neutrophils 65.1 % (42.0-75.0); Hematocrit 33.8 % (36.0-47.0); Hemoglobin 9.8 g/dL (12.0-16.0); Mean Corpuscular Hemoglobin 26.8 pg (27.0-31.0); Mean Corpuscular Volume 92.3 fL (78.0-98.0); Mean Platelet Volume 9.5 fL (7.4-10.4); Platelet Count 83 10x3/uL (130-400); RBC Distribution Width 19.5 % (11.5-14.5); Red Blood Cell (RBC) Count 3.66 mill/uL (4.20-5.40)
[2024-07-18] MEDS ORDERED: Heparin 10,000 UNITS/ 10 ML VIAL ONE (08:48)
[2024-07-18] MEDS: EPOETIN ALFA-EPBX 10,000 UNITS/ML VIAL SC SCH (15:08)
[2024-07-18 17:22] LABS: Free T4 (Free Thyroxine) 1.2 ng/dL (0.70-1.48); Thyroid Stimulating Hormone 3.0635 uIU/mL (0.35-4.94)
[2024-07-18] MEDS: Melatonin 3 MG TAB PO PRN (22:36)
[2024-07-19] MEDS: Acetaminophen 325 MG TAB PO PRN (20:15)
[2024-07-20 08:13] LABS: #Basophils 0.03 10x3/uL (0.0-0.2); %Basophils 0.8 % (0.0-1.0); %Monocytes 10.5 % (0.0-10.0); %Neutrophils 69.9 % (42.0-75.0); Hemoglobin 9.5 g/dL (12.0-16.0); Mean Corpuscular HGB CONC 28.8 g/dL (32.0-36.0); Mean Corpuscular Hemoglobin 26.9 pg (27.0-31.0); Mean Corpuscular Volume 93.5 fL (78.0-98.0); Mean Platelet Volume 11.2 fL (7.4-10.4); Platelet Count 94 10x3/uL (130-400); RBC Distribution Width 19.8 % (11.5-14.5); Red Blood Cell (RBC) Count 3.53 mill/uL (4.20-5.40)
[2024-07-20] MEDS ORDERED: Heparin 10,000 UNITS/ 10 ML VIAL ONE (10:14)
[2024-07-20] MEDS: Albumin 25% 25 GM (100 mL) BOT IVPB SCH (14:47)
[2024-07-21] MEDS: Hydrocortisone 1% Cream 30 GM TUBE TOP PRN (12:02)
[2024-07-22 05:12] LABS: Albumin 3.3 g/dL (3.4-4.8); Anion Gap 15 mmol/L (10-20); BUN (Urea Nitrogen) 22 mg/dL (9.8-20.1); BUN/Creatinine Ratio 5.26; Calc. Creatinine Clearance 19 mL/min (70-130); Calcium 9.2 mg/dL (7.8-10.44); Carbon Dioxide 26 mmol/L (23-31); Chloride 100 mmol/L (98-107); Estimated GFR 10; Glucose 112 mg/dL (83-110); Phosphorus 2.8 mg/dL (2.3-4.7); Sodium 137 mmol/L (136-145)
[2024-07-22 06:33] LABS: #Basophils 0.06 10x3/uL (0.0-0.2); %Basophils 1.1 % (0.0-1.0); %Eosinophils 3.8 % (0.0-10.0); %Lymphocytes 13.7 % (21.0-51.0); %Monocytes 10.4 % (0.0-10.0); %Neutrophils 70.5 % (42.0-75.0); Hematocrit 35.6 % (36.0-47.0); Hemoglobin 10.5 g/dL (12.0-16.0); Mean Corpuscular HGB CONC 29.5 g/dL (32.0-36.0); Mean Corpuscular Hemoglobin 27.3 pg (27.0-31.0); Mean Corpuscular Volume 92.5 fL (78.0-98.0); Mean Platelet Volume 10.4 fL (7.4-10.4); Platelet Count 122 10x3/uL (130-400); RBC Distribution Width 19.9 % (11.5-14.5); Red Blood Cell (RBC) Count 3.85 mill/uL (4.20-5.40)
[2024-07-22] MEDS ORDERED: Heparin 10,000 UNITS/ 10 ML VIAL ONE (09:43)
[2024-07-22] MEDS: Promethazine HCl 25 MG SUPP PR SCH (17:16)
[2024-07-23 04:16] VITALS: BMI 45.8
[2024-07-24 06:02] LABS: #Basophils 0.09 10x3/uL (0.0-0.2); %Basophils 1.3 % (0.0-1.0); %Eosinophils 2.9 % (0.0-10.0); %Lymphocytes 15.1 % (21.0-51.0); %Monocytes 10.5 % (0.0-10.0); %Neutrophils 69.2 % (42.0-75.0); Hematocrit 36.8 % (36.0-47.0); Hemoglobin 10.9 g/dL (12.0-16.0); Mean Corpuscular HGB CONC 29.6 g/dL (32.0-36.0); Mean Corpuscular Hemoglobin 26.7 pg (27.0-31.0); Mean Platelet Volume 11.3 fL (7.4-10.4); Platelet Count 169 10x3/uL (130-400); Red Blood Cell (RBC) Count 4.09 mill/uL (4.20-5.40)
[2024-07-24 06:18] LABS: Anion Gap 18 mmol/L (10-20); BUN (Urea Nitrogen) 30 mg/dL (9.8-20.1); Calc. Creatinine Clearance 15 mL/min (70-130); Calcium 9.5 mg/dL (7.8-10.44); Carbon Dioxide 22 mmol/L (23-31); Chloride 97 mmol/L (98-107); Estimated GFR 8; Glucose 107 mg/dL (83-110); Sodium 133 mmol/L (136-145)
[2024-07-24] MEDS: traZODone HCl 50 MG TAB PO PRN (20:41)
[2024-07-24] MEDS: Pregabalin 25 MG CAP PO SCH (21:55)
[2024-07-25] MEDS: hydrOXYzine 10 MG TAB PO PRN (01:14)
[2024-07-25 06:42] LABS: #Basophils 0.04 10x3/uL (0.0-0.2); %Basophils 0.9 % (0.0-1.0); %Eosinophils 2.7 % (0.0-10.0); %Lymphocytes 16.6 % (21.0-51.0); %Monocytes 10.7 % (0.0-10.0); %Neutrophils 68.4 % (42.0-75.0); Hematocrit 34.3 % (36.0-47.0); Hemoglobin 10.3 g/dL (12.0-16.0); Mean Corpuscular Hemoglobin 26.9 pg (27.0-31.0); Mean Corpuscular Volume 89.6 fL (78.0-98.0); Mean Platelet Volume 10.6 fL (7.4-10.4); Platelet Count 128 10x3/uL (130-400); RBC Distribution Width 19.9 % (11.5-14.5); Red Blood Cell (RBC) Count 3.83 mill/uL (4.20-5.40)
[2024-07-25 07:10] LABS: Anion Gap 18 mmol/L (10-20); BUN (Urea Nitrogen) 40 mg/dL (9.8-20.1); Calc. Creatinine Clearance 12 mL/min (70-130); Calcium 9.2 mg/dL (7.8-10.44); Carbon Dioxide 24 mmol/L (23-31); Chloride 95 mmol/L (98-107); Estimated GFR 6; Glucose 91 mg/dL (83-110); Potassium 3.7 mmol/L (3.5-5.1); Sodium 133 mmol/L (136-145)
[2024-07-25] MEDS: Activase 2 MG VIAL CATH SCH ×3 (16:16→16:18)
[2024-07-25] MEDS: Sterile Water 10 ML VIAL IVP SCH (16:17)
[2024-07-25 18:07] VITALS: BMI 46.2
[2024-07-26 06:44] LABS: Anion Gap 19 mmol/L (10-20); BUN (Urea Nitrogen) 21 mg/dL (9.8-20.1); Calc. Creatinine Clearance 17 mL/min (70-130); Calcium 9.3 mg/dL (7.8-10.44); Carbon Dioxide 22 mmol/L (23-31); Chloride 101 mmol/L (98-107); Estimated GFR 10; Glucose 115 mg/dL (83-110); Potassium 4.9 mmol/L (3.5-5.1); Sodium 137 mmol/L (136-145)
[2024-07-26 06:49] LABS: #Basophils 0.06 10x3/uL (0.0-0.2); %Basophils 1.3 % (0.0-1.0); %Eosinophils 3.2 % (0.0-10.0); %Lymphocytes 16.4 % (21.0-51.0); %Monocytes 12.4 % (0.0-10.0); %Neutrophils 65.6 % (42.0-75.0); Hematocrit 37.9 % (36.0-47.0); Hemoglobin 10.9 g/dL (12.0-16.0); Mean Corpuscular HGB CONC 28.8 g/dL (32.0-36.0); Mean Corpuscular Hemoglobin 27.5 pg (27.0-31.0); Mean Corpuscular Volume 95.5 fL (78.0-98.0); Mean Platelet Volume 11.1 fL (7.4-10.4); Platelet Count 115 10x3/uL (130-400); RBC Distribution Width 20.5 % (11.5-14.5); Red Blood Cell (RBC) Count 3.97 mill/uL (4.20-5.40)
[2024-07-27 06:10] LABS: #Basophils 0.07 10x3/uL (0.0-0.2); %Basophils 1.5 % (0.0-1.0); %Eosinophils 3.8 % (0.0-10.0); %Lymphocytes 18.2 % (21.0-51.0); %Monocytes 13.1 % (0.0-10.0); %Neutrophils 61.9 % (42.0-75.0); Hematocrit 34.7 % (36.0-47.0); Mean Corpuscular HGB CONC 28.8 g/dL (32.0-36.0); Mean Corpuscular Hemoglobin 26.9 pg (27.0-31.0); Mean Corpuscular Volume 93.3 fL (78.0-98.0); Mean Platelet Volume 10.7 fL (7.4-10.4); Platelet Count 138 10x3/uL (130-400); RBC Distribution Width 20.4 % (11.5-14.5); Red Blood Cell (RBC) Count 3.72 mill/uL (4.20-5.40)
[2024-07-27 06:23] LABS: Anion Gap 18 mmol/L (10-20); BUN (Urea Nitrogen) 31 mg/dL (9.8-20.1); Calc. Creatinine Clearance 14 mL/min (70-130); Calcium 9.4 mg/dL (7.8-10.44); Carbon Dioxide 22 mmol/L (23-31); Chloride 99 mmol/L (98-107); Estimated GFR 8; Glucose 104 mg/dL (83-110); Potassium 3.9 mmol/L (3.5-5.1); Sodium 135 mmol/L (136-145)
[2024-07-27] MEDS ORDERED: Heparin 10,000 UNITS/ 10 ML VIAL ONE (08:35)
[2024-07-28 19:32] VITALS: BP 108/67; TEMP 98.5
== END 2024-07-28 17:24 | disposition home health service (06) | DRG 673 ==
LOC: ERS 12:19 → SUATTDRO 12:19 → 2NO 17:50 → T4-B 07-09 17:03
PROVIDERS: ADMIT Internal Medicine; ATTEND Internal Medicine
PROC: 5A09357 Assistance with Respiratory Ventilation, Less than 24 Consecutive Hours, Continuous Positive Airway Pressure (ICD-10-PCS; 2024-07-02)
PROC: 02HV33Z Insertion of Infusion Device into Superior Vena Cava, Percutaneous Approach (ICD-10-PCS; principal; 2024-07-03)
PROC: 5A1D70Z Performance of Urinary Filtration, Intermittent, Less than 6 Hours Per Day (ICD-10-PCS; 2024-07-03)
PROC: 0JH63XZ Insertion of Tunneled Vascular Access Device into Chest Subcutaneous Tissue and Fascia, Percutaneous Approach (ICD-10-PCS; 2024-07-11)
PROC: 02HV33Z Insertion of Infusion Device into Superior Vena Cava, Percutaneous Approach (ICD-10-PCS; 2024-07-11)
PROC: B5181ZA Fluoroscopy of Superior Vena Cava using Low Osmolar Contrast, Guidance (ICD-10-PCS; 2024-07-11)
DX: N17.0 Acute kidney failure with tubular necrosis (principal); G93.41 Metabolic encephalopathy; K76.7 Hepatorenal syndrome; E87.0 Hyperosmolality and hypernatremia; E87.1 Hypo-osmolality and hyponatremia; I50.32 Chronic diastolic (congestive) heart failure; N39.0 Urinary tract infection, site not specified; Z68.42 Body mass index [BMI] 45.0-49.9, adult; I13.2 Hypertensive heart and chronic kidney disease with heart failure and with stage 5 chronic kidney disease, or end stage renal disease; D61.818 Other pancytopenia; G47.33 Obstructive sleep apnea (adult) (pediatric); E03.9 Hypothyroidism, unspecified; E78.5 Hyperlipidemia, unspecified; K74.60 Unspecified cirrhosis of liver; D63.1 Anemia in chronic kidney disease; E87.5 Hyperkalemia; N18.6 End stage renal disease; R53.1 Weakness; Z66 Do not resuscitate; E66.01 Morbid (severe) obesity due to excess calories; N18.30 Chronic kidney disease, stage 3 unspecified; Z88.8 Allergy status to other drugs, medicaments and biological substances; Z99.81 Dependence on supplemental oxygen; Z79.899 Other long term (current) drug therapy; Z88.7 Allergy status to serum and vaccine; E55.9 Vitamin D deficiency, unspecified; K75.81 Nonalcoholic steatohepatitis (NASH); R13.12 Dysphagia, oropharyngeal phase; E88.09 Other disorders of plasma-protein metabolism, not elsewhere classified
CPT/HCPCS: 36415; 36416; 51701; 70450; 71045; 74176; 80048; 80053; 80069; 80202; 81001; 82140; 82306; 82310; 82570; 82728; 82805; 83540; 83550; 83735; 83880; 84156; 84300; 84436; 84439; 84443; 84480; 84481; 84484; 84540; 85025; 85610; 85730; 86580; 86704; 86706; 86803; 86850; 86900; 86901; 87040; 87077; 87086; 87186; 87340; 90935; 93005; 96374; 96375; 97139; C1752; G0257; J0171; J0613; J0665; J0696; J1642; J1644; J1756; J2250; J2354; J2405; J2704; J2916; J3370; J3370-JW; J3490; J7042; J7050; P9047; Q0162; Q5106

== ENCOUNTER 2024-09-29 17:12 | Inpatient (IN) | payer MEDICARE ==
[2024-09-29 18:48] LABS: ALT (SGPT) 8 U/L (8-55); AST (SGOT) 12 U/L (5-34); Albumin 1.7 g/dL (3.4-4.8); Alkaline Phosphatase 121 U/L (40-110); Anion Gap 18 mmol/L (10-20); BUN (Urea Nitrogen) 11 mg/dL (9.8-20.1); Bilirubin, Total 0.4 mg/dL (0.2-1.2); Calc. Creatinine Clearance 0 mL/min (70-130); Calcium 8.1 mg/dL (7.8-10.44); Carbon Dioxide 28 mmol/L (23-31); Chloride 94 mmol/L (98-107); Estimated GFR 26; Globulin 3.7 g/dL (2.4-3.5); Glucose 122 mg/dL (83-110); Potassium 2.8 mmol/L (3.5-5.1); Protein, Total 5.4 g/dL (5.8-8.1); Sodium 137 mmol/L (136-145)
[2024-09-29 19:01] LABS: #Basophils Less than 0.03 10x3/uL (0.0-0.2); %Basophils 0.2 % (0.0-1.0); %Eosinophils 0.7 % (0.0-10.0); %Lymphocytes 3.2 % (21.0-51.0); %Monocytes 5.7 % (0.0-10.0); %Neutrophils 89.4 % (42.0-75.0); Hemoglobin 9.9 g/dL (12.0-16.0); Mean Corpuscular Hemoglobin 26.2 pg (27.0-31.0); Mean Corpuscular Volume 87.3 fL (78.0-98.0); Mean Platelet Volume 10.1 fL (7.4-10.4); Platelet Count 204 10x3/uL (130-400); RBC Distribution Width 16.1 % (11.5-14.5); Red Blood Cell (RBC) Count 3.78 mill/uL (4.20-5.40)
[2024-09-29] MEDS ORDERED: Cefepime 2 GM VIAL ONE (19:40)
[2024-09-29] MEDS ORDERED: Sodium Chloride 0.9% 100 ML ONE (19:41)
[2024-09-29] MEDS ORDERED: Acetaminophen 500 MG TAB ONE (19:45)
[2024-09-29] MEDS ORDERED: Vancomycin 1 GM/200 ML (FROZEN) BAG ONE (20:06)
[2024-09-29] MEDS ORDERED: Ondansetron PF 4 MG/2 ML Vial IVP PRN (21:10)
[2024-09-29] MEDS ORDERED: Ondansetron ODT 4 MG TAB PO PRN (21:10)
[2024-09-29] MEDS ORDERED: Loratadine 10 MG TAB PO PRN (21:13)
[2024-09-29] MEDS ORDERED: Vancomycin 1 GM in Sodium Chloride 0.9% 500 ML IVPB SCH (21:15)
[2024-09-29] MEDS: traMADol HCl 50 MG TAB PO PRN (23:07)
[2024-09-29] MEDS: Potassium Chloride 20 MEQ TAB PO SCH (23:08)
[2024-09-29 23:13] VITALS: BMI 41.9
[2024-09-29] MEDS ORDERED: Vancomycin (BATCH) 1.5 GM in Premix 1 BAG IVPB SCH (23:30)
[2024-09-29] MEDS ORDERED: Vancomycin Dialysis Sliding Scale (Wt > 99) FS SCH (23:45)
[2024-09-30] MEDS: Acetaminophen 325 MG TAB PO PRN (01:32)
[2024-09-30 04:39] LABS: #Basophils 0.03 10x3/uL (0.0-0.2); %Basophils 0.4 % (0.0-1.0); %Eosinophils 1.6 % (0.0-10.0); %Lymphocytes 6.6 % (21.0-51.0); %Monocytes 10.6 % (0.0-10.0); Hematocrit 29.6 % (36.0-47.0); Hemoglobin 8.7 g/dL (12.0-16.0); Mean Corpuscular HGB CONC 29.4 g/dL (32.0-36.0); Mean Corpuscular Hemoglobin 25.7 pg (27.0-31.0); Mean Corpuscular Volume 87.6 fL (78.0-98.0); Mean Platelet Volume 10.5 fL (7.4-10.4); Platelet Count 194 10x3/uL (130-400); RBC Distribution Width 16.3 % (11.5-14.5); Red Blood Cell (RBC) Count 3.38 mill/uL (4.20-5.40)
[2024-09-30] MEDS: Levothyroxine Sodium 125 MCG TAB PO SCH (05:31)
[2024-09-30 05:55] LABS: Anion Gap 15 mmol/L (10-20); BUN (Urea Nitrogen) 17 mg/dL (9.8-20.1); Calc. Creatinine Clearance 32 mL/min (70-130); Calcium 7.5 mg/dL (7.8-10.44); Carbon Dioxide 29 mmol/L (23-31); Chloride 95 mmol/L (98-107); Estimated GFR 21; Glucose 122 mg/dL (83-110); Potassium 2.5 mmol/L (3.5-5.1); Sodium 136 mmol/L (136-145)
[2024-09-30] MEDS ORDERED: Electrolyte Replacement Protocol 1 EACH FS SCH (08:07)
[2024-09-30] MEDS ORDERED: Mometasone 100 MCG/Formoterol 5 MCG 120 PUFF INHALER INH PRN (08:50)
[2024-09-30] MEDS: Pregabalin 50 MG CAP PO SCH (09:55)
[2024-09-30] MEDS: Venlafaxine HCl XR 150 MG CAP PO SCH (09:55)
[2024-09-30] MEDS: HYDROcodone/Acetaminophen 5/325 mg Tablet PO PRN (09:55)
[2024-09-30] MEDS: Pantoprazole 40 MG DR.TAB PO SCH (09:56)
[2024-09-30] MEDS: Potassium Chloride 20 MEQ TAB PO SCH ×2 (09:56→11:46)
[2024-09-30] MEDS: Heparin 5,000 UNITS/ML VIAL SC SCH (09:56)
[2024-09-30] MEDS: Aspirin 81 mg Enteric Coated Tablet PO SCH (09:56)
[2024-09-30 10:50] LABS: Magnesium 1.8 mg/dL (1.6-2.6); Phosphorus 2.8 mg/dL (2.3-4.7)
[2024-09-30] MEDS ORDERED: Loratadine 10 MG TAB PO PRN (10:54)
[2024-09-30] MEDS: Albumin 25% 25 GM (100 mL) BOT IVPB SCH (11:46)
[2024-09-30 13:16] VITALS: BMI 41.9
[2024-09-30] MEDS: Magnesium 2 GM/50 ML(in water) 2 GM in Premix 1 BAG IVPB SCH (13:43)
[2024-09-30] MEDS: Cefepime 0.5 GM, Admixture Fee 1 EACH in Sodium Chloride 0.9% 100 ML IVPB SCH (17:58)
[2024-09-30] MEDS ORDERED: Vancomycin HCl 500 MG in Sodium Chloride 0.9% 100 ML IVPB SCH (20:00)
[2024-09-30] MEDS ORDERED: Cefepime 0.5 GM in Sodium Chloride 0.9% 100 ML IVPB SCH (21:00)
[2024-09-30] MEDS: Atorvastatin Calcium 20 MG TAB PO SCH (21:18)
[2024-09-30] MEDS: Pregabalin 75 MG CAP PO SCH (21:18)
[2024-10-01 06:04] LABS: #Basophils Less than 0.03 10x3/uL (0.0-0.2); %Basophils 0.3 % (0.0-1.0); %Eosinophils 5.2 % (0.0-10.0); %Lymphocytes 9.4 % (21.0-51.0); %Monocytes 9.8 % (0.0-10.0); %Neutrophils 74.5 % (42.0-75.0); Hematocrit 28.7 % (36.0-47.0); Hemoglobin 8.4 g/dL (12.0-16.0); Mean Corpuscular HGB CONC 29.3 g/dL (32.0-36.0); Mean Corpuscular Hemoglobin 26.8 pg (27.0-31.0); Mean Corpuscular Volume 91.4 fL (78.0-98.0); Mean Platelet Volume 10.2 fL (7.4-10.4); Platelet Count 178 10x3/uL (130-400); RBC Distribution Width 16.4 % (11.5-14.5); Red Blood Cell (RBC) Count 3.14 mill/uL (4.20-5.40)
[2024-10-01 06:11] LABS: Albumin 2.8 g/dL (3.4-4.8); Anion Gap 17 mmol/L (10-20); BUN (Urea Nitrogen) 24 mg/dL (9.8-20.1); BUN/Creatinine Ratio 7.72; Calc. Creatinine Clearance 24 mL/min (70-130); Calcium 8.2 mg/dL (7.8-10.44); Carbon Dioxide 27 mmol/L (23-31); Chloride 97 mmol/L (98-107); Estimated GFR 15; Glucose 81 mg/dL (83-110); Magnesium 2.3 mg/dL (1.6-2.6); Phosphorus 4.1 mg/dL (2.3-4.7); Potassium 3.8 mmol/L (3.5-5.1); Sodium 137 mmol/L (136-145)
[2024-10-01 07:32] LABS: Vancomycin, Trough 8.9 ug/mL
[2024-10-01] MEDS ORDERED: PROPOFOL 20 ML ONE (08:07)
[2024-10-01] MEDS ORDERED: Ondansetron PF 4 MG/2 ML Vial ONE (08:07)
[2024-10-01] MEDS ORDERED: Dexamethasone 4 mg/ml Vial ONE (08:07)
[2024-10-01] MEDS ORDERED: Lidocaine 1% PF 5 ML VIAL ONE (08:07)
[2024-10-01] MEDS ORDERED: Etomidate 40 MG (20 mL) VIAL ONE (08:11)
[2024-10-01] MEDS ORDERED: Rocuronium Bromide 10 MG/ML (10ML VIAL) ONE (08:32)
[2024-10-01] MEDS ORDERED: PHENYLEPHRINE-NS 100 MCG/ML 10 ML SYRINGE ONE (08:37)
[2024-10-01] MEDS ORDERED: Phenylephrine 10 MG/ML VIAL ONE (08:52)
[2024-10-01] MEDS ORDERED: SUGAMMADEX SODIUM 200 MG/2 ML VIAL ONE (09:07)
[2024-10-01 09:17] LABS: Bilirubin Negative (Negative); Blood, Urine 2+ (Negative); Clarity Turbid (Clear); Glucose, Urine (Dipstick) Normal (Negative); Ketone, Urine Trace mg/dL (Negative); Leukocyte 500 Leu/uL (Negative); Nitrite Negative (Negative); Protein, Urine (Dipstick) 100 mg/dL (Neg-Trace); Specific Gravity, Urine 1.026 (1.002-1.036); Squamous Epithelial None Seen HPF (0-3); Urobilinogen 3 mg/dL (Less than 2); pH, Urine 5.5 (5.0-9.0)
[2024-10-01] MEDS ORDERED: Albuterol HFA (OR) 200 PUFF INH ONE (09:18)
[2024-10-01 09:38] LABS: Bacteria/HPF 3+ HPF (None Seen)
[2024-10-01 09:39] LABS: Unclassified Crystals None Seen HPF (None Seen)
[2024-10-01] MEDS ORDERED: Heparin 10,000 UNITS/ 10 ML VIAL ONE (10:49)
[2024-10-01 12:15] LABS: HBSAB Concentration Less than 8.00 mIU/mL; HBsAg Index 0.38 S/CO (0-0.99); Hep B Core Total Ab NONREACTIVE (NonReactive); Hep B Core Total Index 0.15 S/CO (0-0.79); Hep B Surf AB NONREACTIVE (NonReactive); Hep B Surf Ag NONREACTIVE S/CO (NonReactive); Hep C IgG Ab NONREACTIVE S/CO (NonReactive); Hep C Index 0.14 S/CO (0-0.79)
[2024-10-01] MEDS ORDERED: Cefepime 0.5 GM, Admixture Fee 1 EACH in Sodium Chloride 0.9% 100 ML IVPB SCH (17:00)
[2024-10-01] MEDS: Albumin 25% 25 GM (100 mL) BOT IVPB SCH (17:00)
[2024-10-01] MEDS ORDERED: Cefepime 0.5 GM in Admixture Fee 1 EACH IVPB SCH (17:00)
[2024-10-01] MEDS: Vancomycin 1.5 GRAM/300 ML BAG 1.5 GM in Premix 1 BAG IVPB SCH (18:37)
[2024-10-01 19:00] LABS: Hemoglobin 7.6 g/dL (12.0-16.0)
[2024-10-01] MEDS: traMADol HCl 50 MG TAB PO PRN (20:21)
[2024-10-02 07:01] LABS: Anion Gap 19 mmol/L (10-20); BUN (Urea Nitrogen) 15 mg/dL (9.8-20.1); Calc. Creatinine Clearance 31 mL/min (70-130); Calcium 8.2 mg/dL (7.8-10.44); Carbon Dioxide 20 mmol/L (23-31); Chloride 104 mmol/L (98-107); Estimated GFR 20; Glucose 92 mg/dL (83-110); Potassium 4.6 mmol/L (3.5-5.1); Sodium 138 mmol/L (136-145)
[2024-10-02] MEDS ORDERED: Epoetin (ESRD) 10,000 UNITS/ML VIAL SC SCH (08:30)
[2024-10-02 09:29] LABS: Anion Gap 14 mmol/L (10-20); BUN (Urea Nitrogen) 17 mg/dL (9.8-20.1); Calc. Creatinine Clearance 30 mL/min (70-130); Calcium 8.4 mg/dL (7.8-10.44); Carbon Dioxide 31 mmol/L (23-31); Chloride 100 mmol/L (98-107); Estimated GFR 19; Glucose 94 mg/dL (83-110); Potassium 4.2 mmol/L (3.5-5.1); Sodium 141 mmol/L (136-145)
[2024-10-02 09:57] LABS: Hematocrit 27.1 % (36.0-47.0); Hemoglobin 7.7 g/dL (12.0-16.0); Mean Corpuscular HGB CONC 28.4 g/dL (32.0-36.0); Mean Corpuscular Hemoglobin 26.5 pg (27.0-31.0); Mean Corpuscular Volume 93.1 fL (78.0-98.0); Mean Platelet Volume 9.9 fL (7.4-10.4); Platelet Count 153 10x3/uL (130-400); RBC Distribution Width 16.2 % (11.5-14.5); Red Blood Cell (RBC) Count 2.91 mill/uL (4.20-5.40)
[2024-10-02 10:35] LABS: Actual Bicarbonate (HCO3a) 27.4 mEq/L (22-28); Base Excess (BEa) 0.8 mEq/L (-2.0 to +3.0); CO2 Tension 54.6 mmHg (35.0-45.0); Calcium, Ionized (arterial) 1.12 mmol/L (1.12-1.30); Carboxyhemoglobin (COHb) 1.3 gm% (0.0-3.0); Hematocrit-ABG 25 % (36.0-47.0); Hemoglobin (Hb) 8.4 g/dL (12.0-16.0); Potassium - ABG Lab 3.94 mmol/L (3.70-5.30); pH, Arterial 7.318 (7.35-7.45)
[2024-10-02 10:37] LABS: O2 Tension (PaO2), arterial 55.4 mmHg (> 60.0)
[2024-10-02 10:52] LABS: #Basophils 0.03 10x3/uL (0.0-0.2); %Basophils 0.4 % (0.0-1.0); %Eosinophils 3.7 % (0.0-10.0); %Lymphocytes 9.7 % (21.0-51.0); %Monocytes 11.8 % (0.0-10.0); %Neutrophils 73.5 % (42.0-75.0); Ovalocytes MODERATE= 6-15 cells (100X) (0-1/hpf); Plasma Cells 0 % (0-0); Platelet Adequacy Comment Appears Adequate
[2024-10-02] MEDS: Sodium Ferric Gluconate 250 MG in Sodium Chloride 0.9% 250 ML 250 ML IVPB SCH (15:59)
[2024-10-02] MEDS: EPOETIN ALFA-EPBX (ESRD) 10,000 UNITS/ML VIAL SC SCH (16:20)
[2024-10-03 05:28] LABS: #Basophils Less than 0.03 10x3/uL (0.0-0.2); %Basophils 0.2 % (0.0-1.0); %Eosinophils 3.5 % (0.0-10.0); %Lymphocytes 9.3 % (21.0-51.0); %Monocytes 10.1 % (0.0-10.0); %Neutrophils 75.8 % (42.0-75.0); Hematocrit 27.1 % (36.0-47.0); Hemoglobin 7.6 g/dL (12.0-16.0); Mean Corpuscular Hemoglobin 25.9 pg (27.0-31.0); Mean Corpuscular Volume 92.5 fL (78.0-98.0); Mean Platelet Volume 10.4 fL (7.4-10.4); Platelet Count 152 10x3/uL (130-400); RBC Distribution Width 16.3 % (11.5-14.5); Red Blood Cell (RBC) Count 2.93 mill/uL (4.20-5.40)
[2024-10-03 05:35] LABS: Anion Gap 17 mmol/L (10-20); BUN (Urea Nitrogen) 22 mg/dL (9.8-20.1); Calc. Creatinine Clearance 22 mL/min (70-130); Calcium 8.5 mg/dL (7.8-10.44); Carbon Dioxide 29 mmol/L (23-31); Chloride 100 mmol/L (98-107); Estimated GFR 13; Glucose 82 mg/dL (83-110); Potassium 3.9 mmol/L (3.5-5.1); Sodium 142 mmol/L (136-145)
[2024-10-04 04:27] LABS: #Basophils Less than 0.03 10x3/uL (0.0-0.2); %Basophils 0.4 % (0.0-1.0); %Lymphocytes 11.6 % (21.0-51.0); %Monocytes 10.6 % (0.0-10.0); %Neutrophils 72.7 % (42.0-75.0); Hematocrit 26.5 % (36.0-47.0); Hemoglobin 7.5 g/dL (12.0-16.0); Mean Corpuscular HGB CONC 28.3 g/dL (32.0-36.0); Mean Corpuscular Hemoglobin 26.1 pg (27.0-31.0); Mean Corpuscular Volume 92.3 fL (78.0-98.0); Platelet Count 149 10x3/uL (130-400); RBC Distribution Width 16.5 % (11.5-14.5); Red Blood Cell (RBC) Count 2.87 mill/uL (4.20-5.40)
[2024-10-04 04:28] LABS: Anion Gap 19 mmol/L (10-20); BUN (Urea Nitrogen) 27 mg/dL (9.8-20.1); Calc. Creatinine Clearance 17 mL/min (70-130); Calcium 8.5 mg/dL (7.8-10.44); Carbon Dioxide 26 mmol/L (23-31); Chloride 100 mmol/L (98-107); Estimated GFR 10; Glucose 79 mg/dL (83-110); Potassium 4.2 mmol/L (3.5-5.1); Sodium 141 mmol/L (136-145)
[2024-10-04 07:45] LABS: Vancomycin, Trough 20.5 ug/mL
[2024-10-04] MEDS: Midodrine HCl 5 MG TAB PO SCH (08:45)
[2024-10-04] MEDS ORDERED: Heparin 10,000 UNITS/ 10 ML VIAL ONE (09:53)
[2024-10-04 15:19] LABS: Actual Bicarbonate (HCO3a) 27.2 mEq/L (22-28); Base Excess (BEa) 3.1 mEq/L (-2.0 to +3.0); CO2 Tension 39.5 mmHg (35.0-45.0); Calcium, Ionized (arterial) 1.15 mmol/L (1.12-1.30); Carboxyhemoglobin (COHb) 1.1 gm% (0.0-3.0); Hematocrit-ABG 24 % (36.0-47.0); Hemoglobin (Hb) 8.1 g/dL (12.0-16.0); O2 Tension (PaO2), arterial 159.1 mmHg (> 60.0); Potassium - ABG Lab 4.09 mmol/L (3.70-5.30); pH, Arterial 7.456 (7.35-7.45)
[2024-10-04 15:22] LABS: Puncture Site Left Radial artery
[2024-10-04 15:23] LABS: ALV-art Gradient 19.685 mmHg (0-20)
[2024-10-04] MEDS ORDERED: Fluconazole 100 MG TAB PO SCH (16:30)
[2024-10-04] MEDS: Fluconazole 100 MG TAB PO SCH (17:34)
[2024-10-04] MEDS: Vancomycin HCl 500 MG in Sodium Chloride 0.9% 100 ML IVPB SCH (17:34)
[2024-10-05] MEDS ORDERED: Fluconazole 100 MG TAB PO SCH (09:00)
[2024-10-05] MEDS: HYDROmorphone 0.5 MG/0.5 ML SYRINGE SLOW IVP SCH (11:12)
[2024-10-05] MEDS: Nystatin/Triamcinolone Ointment 15 GM TUBE TOP SCH (20:26)
[2024-10-06 07:52] LABS: Vancomycin, Trough 19.6 ug/mL
[2024-10-06 08:32] LABS: Hematocrit 27.7 % (36.0-47.0); Hemoglobin 7.9 g/dL (12.0-16.0); Mean Corpuscular HGB CONC 28.5 g/dL (32.0-36.0); Mean Corpuscular Hemoglobin 26.4 pg (27.0-31.0); Mean Corpuscular Volume 92.6 fL (78.0-98.0); Platelet Count 130 10x3/uL (130-400); RBC Distribution Width 16.8 % (11.5-14.5); Red Blood Cell (RBC) Count 2.99 mill/uL (4.20-5.40)
[2024-10-06 08:37] LABS: Albumin 2.5 g/dL (3.4-4.8); Anion Gap 14 mmol/L (10-20); BUN (Urea Nitrogen) 23 mg/dL (9.8-20.1); BUN/Creatinine Ratio 8.01; Calc. Creatinine Clearance 26 mL/min (70-130); Calcium 8.8 mg/dL (7.8-10.44); Carbon Dioxide 25 mmol/L (23-31); Chloride 105 mmol/L (98-107); Estimated GFR 16; Glucose 91 mg/dL (83-110); Phosphorus 2.6 mg/dL (2.3-4.7); Potassium 4.2 mmol/L (3.5-5.1); Sodium 140 mmol/L (136-145)
[2024-10-06 09:03] LABS: Band 4 % (5-11); Eosinophils 4 % (0-10); Hypochromia SLIGHT = 6-15 cells HPF (0-5); Lymphocytes 5 % (21-51); Monocytes 6 % (0-10); Myelocyte 2 % (0-0); Neutrophil 78 % (42-75); Platelet Adequacy Comment Platelets Normal; Polychromasia SLIGHT = 2-3 cells HPF (0-2); Reactive Lymphocytes 1 % (0-10); Stomatocytes SLIGHT = 2-5 cells HPF (0-1)
[2024-10-06] MEDS: Vancomycin 1 GM in Premix 1 BAG IVPB SCH (17:22)
[2024-10-06] MEDS: Albumin 25% 25 GM (100 mL) BOT IVPB SCH ×2 (17:43→17:44)
[2024-10-07 05:27] LABS: Hematocrit 24.9 % (36.0-47.0); Hemoglobin 7.2 g/dL (12.0-16.0)
[2024-10-07 05:42] LABS: Anion Gap 11 mmol/L (10-20); BUN (Urea Nitrogen) 12 mg/dL (9.8-20.1); Calc. Creatinine Clearance 38 mL/min (70-130); Calcium 8.9 mg/dL (7.8-10.44); Carbon Dioxide 28 mmol/L (23-31); Chloride 103 mmol/L (98-107); Estimated GFR 26; Glucose 96 mg/dL (83-110); Potassium 3.9 mmol/L (3.5-5.1); Sodium 138 mmol/L (136-145)
[2024-10-07] MEDS: fentaNYL 50 mcg/mL 1 mL Vial SLOW IVP SCH (14:17)
[2024-10-07] MEDS: HYDROcodone/Acetaminophen 5/325 mg Tablet PO PRN (23:30)
[2024-10-07] MEDS: Nystatin Powder 15 GM BOT TOP PRN (23:30)
[2024-10-08 05:23] LABS: Hematocrit 27.2 % (36.0-47.0); Hemoglobin 7.8 g/dL (12.0-16.0)
[2024-10-08] MEDS ORDERED: Heparin 10,000 UNITS/ 10 ML VIAL ONE (09:57)
[2024-10-08] MEDS ORDERED: Albumin 25% 25 GM (100 mL) BOT IVPB PRN (10:09)
[2024-10-09] MEDS: fentaNYL 50 mcg/mL 1 mL Vial SLOW IVP PRN (09:40)
[2024-10-10 06:31] LABS: #Basophils Less than 0.03 10x3/uL (0.0-0.2); %Basophils 0.4 % (0.0-1.0); %Eosinophils 1.1 % (0.0-10.0); %Lymphocytes 8.2 % (21.0-51.0); %Monocytes 8.4 % (0.0-10.0); %Neutrophils 81.2 % (42.0-75.0); Hematocrit 26.4 % (36.0-47.0); Hemoglobin 7.7 g/dL (12.0-16.0); Mean Corpuscular HGB CONC 29.2 g/dL (32.0-36.0); Mean Corpuscular Hemoglobin 26.6 pg (27.0-31.0); Mean Corpuscular Volume 91.3 fL (78.0-98.0); Mean Platelet Volume 10.3 fL (7.4-10.4); Platelet Count 129 10x3/uL (130-400); RBC Distribution Width 17.2 % (11.5-14.5); Red Blood Cell (RBC) Count 2.89 mill/uL (4.20-5.40)
[2024-10-10 06:45] LABS: Anion Gap 15 mmol/L (10-20); BUN (Urea Nitrogen) 17 mg/dL (9.8-20.1); Calc. Creatinine Clearance 27 mL/min (70-130); Carbon Dioxide 25 mmol/L (23-31); Chloride 105 mmol/L (98-107); Estimated GFR 17; Glucose 84 mg/dL (83-110); Potassium 4.1 mmol/L (3.5-5.1); Sodium 141 mmol/L (136-145)
[2024-10-11] MEDS ORDERED: Albumin 25% 25 GM (100 mL) BOT IVPB PRN (07:00)
[2024-10-11] MEDS ORDERED: Heparin 10,000 UNITS/ 10 ML VIAL ONE (10:36)
[2024-10-11] MEDS: Sterile Water 10 ML VIAL IVP SCH (17:58)
[2024-10-11] MEDS: Activase 2 MG VIAL CATH SCH (17:58)
[2024-10-12] MEDS ORDERED: Morphine 2 MG/ML VIAL SLOW IVP PRN (14:42)
[2024-10-12] MEDS: fentaNYL 50 mcg/mL 1 mL Vial SLOW IVP SCH (15:14)
[2024-10-12 22:41] LABS: #Basophils Less than 0.03 10x3/uL (0.0-0.2); %Basophils 0.2 % (0.0-1.0); %Eosinophils 0.6 % (0.0-10.0); %Lymphocytes 6.3 % (21.0-51.0); %Monocytes 8.6 % (0.0-10.0); %Neutrophils 83.7 % (42.0-75.0); Hematocrit 27.9 % (36.0-47.0); Hemoglobin 8.7 g/dL (12.0-16.0); Mean Corpuscular HGB CONC 31.2 g/dL (32.0-36.0); Mean Corpuscular Hemoglobin 26.8 pg (27.0-31.0); Mean Corpuscular Volume 85.8 fL (78.0-98.0); Platelet Count 199 10x3/uL (130-400); RBC Distribution Width 17.3 % (11.5-14.5); Red Blood Cell (RBC) Count 3.25 mill/uL (4.20-5.40)
[2024-10-13 07:38] LABS: Calc. Creatinine Clearance 26 mL/min (70-130); Estimated GFR 16
[2024-10-13 07:39] LABS: Anion Gap 19 mmol/L (10-20); BUN (Urea Nitrogen) 19 mg/dL (9.8-20.1); BUN/Creatinine Ratio 6.64; Calcium 9.3 mg/dL (7.8-10.44); Carbon Dioxide 24 mmol/L (23-31); Chloride 100 mmol/L (98-107); Glucose 89 mg/dL (83-110); Potassium 3.9 mmol/L (3.5-5.1); Sodium 139 mmol/L (136-145)
[2024-10-13] MEDS ORDERED: Fentanyl 100 MCG/2 ML VIAL SLOW IVP PRN (09:42)
[2024-10-13] MEDS ORDERED: Heparin 10,000 UNITS/ 10 ML VIAL ONE (10:46)
[2024-10-13] MEDS: traMADol HCl 50 MG TAB PO PRN (10:59)
[2024-10-13] MEDS: Albumin 25% 25 GM (100 mL) BOT IVPB PRN (10:59)
[2024-10-13] MEDS ORDERED: fentaNYL PF 100 MCG/2 ML SYRINGE ONE ×2 (16:22→18:36)
[2024-10-13] MEDS ORDERED: PROPOFOL 20 ML ONE (16:22)
[2024-10-13] MEDS ORDERED: Ondansetron PF 4 MG/2 ML Vial ONE (16:23)
[2024-10-13] MEDS ORDERED: Dexamethasone 20 MG/5 ML VIAL ONE (16:23)
[2024-10-13] MEDS ORDERED: Rocuronium Bromide 10 MG/ML (10ML VIAL) ONE (16:23)
[2024-10-13] MEDS ORDERED: Lidocaine 1% PF 5 ML VIAL ONE (16:23)
[2024-10-13] MEDS ORDERED: CEFAZOLIN 2 GM VIAL ONE (16:42)
[2024-10-13] MEDS ORDERED: Etomidate 40 MG (20 mL) VIAL ONE (16:55)
[2024-10-13] MEDS ORDERED: KETAMINE 100 MG/ML (5ML VIAL) ONE (16:57)
[2024-10-13] MEDS ORDERED: PHENYLEPHRINE-NS 100 MCG/ML 10 ML SYRINGE ONE (17:12)
[2024-10-13] MEDS ORDERED: Esmolol 100 MG/10 ML VIAL ONE (17:22)
[2024-10-13] MEDS ORDERED: SUGAMMADEX SODIUM 200 MG/2 ML VIAL ONE (17:40)
[2024-10-13] MEDS ORDERED: HYDROmorphone 0.5 MG/0.5 ML SYRINGE ONE (18:36)
[2024-10-14] MEDS: Ondansetron PF 4 MG/2 ML Vial IVP PRN (08:24)
[2024-10-15] MEDS ORDERED: Heparin 10,000 UNITS/ 10 ML VIAL ONE (10:55)
[2024-10-17] MEDS: Lidocaine 4% Topical Sol 50 ML BOT TOP SCH (09:13)
[2024-10-18 08:13] LABS: #Basophils Less than 0.03 10x3/uL (0.0-0.2); %Basophils 0.3 % (0.0-1.0); %Lymphocytes 7.2 % (21.0-51.0); %Neutrophils 82.1 % (42.0-75.0); Hematocrit 26.4 % (36.0-47.0); Hemoglobin 8.2 g/dL (12.0-16.0); Mean Corpuscular HGB CONC 31.1 g/dL (32.0-36.0); Mean Corpuscular Hemoglobin 27.2 pg (27.0-31.0); Mean Corpuscular Volume 87.7 fL (78.0-98.0); Platelet Count 186 10x3/uL (130-400); RBC Distribution Width 17.7 % (11.5-14.5); Red Blood Cell (RBC) Count 3.01 mill/uL (4.20-5.40)
[2024-10-18 08:28] LABS: Albumin 2.6 g/dL (3.4-4.8); Anion Gap 19 mmol/L (10-20); BUN (Urea Nitrogen) 23 mg/dL (9.8-20.1); BUN/Creatinine Ratio 5.85; Calc. Creatinine Clearance 19 mL/min (70-130); Calcium 9.3 mg/dL (7.8-10.44); Carbon Dioxide 23 mmol/L (23-31); Chloride 97 mmol/L (98-107); Estimated GFR 11; Glucose 84 mg/dL (83-110); Phosphorus 3.3 mg/dL (2.3-4.7); Potassium 3.9 mmol/L (3.5-5.1); Sodium 135 mmol/L (136-145)
[2024-10-18] MEDS: HYDROcodone/Acetaminophen 5/325 mg Tablet PO PRN (09:09)
[2024-10-18] MEDS: Albumin 25% 25 GM (100 mL) BOT IVPB PRN (09:22)
[2024-10-18] MEDS ORDERED: Heparin 10,000 UNITS/ 10 ML VIAL ONE (09:41)
[2024-10-18] MEDS ORDERED: Vancomycin Dialysis Sliding Scale (Wt > 99) FS SCH (11:00)
[2024-10-18] MEDS ORDERED: Vancomycin (BATCH) 2 GM in Premix 1 BAG IVPB SCH (11:00)
[2024-10-18] MEDS: Vancomycin (BATCH) 2 GM in Premix 1 BAG IVPB SCH (17:09)
[2024-10-18] MEDS: Cefepime 0.5 GM, Admixture Fee 1 EACH in Sodium Chloride 0.9% 100 ML IVPB SCH (20:59)
[2024-10-19 05:28] LABS: #Basophils Less than 0.03 10x3/uL (0.0-0.2); %Basophils 0.3 % (0.0-1.0); %Lymphocytes 8.1 % (21.0-51.0); %Monocytes 12.1 % (0.0-10.0); %Neutrophils 76.8 % (42.0-75.0); Hematocrit 22.1 % (36.0-47.0); Hemoglobin 6.7 g/dL (12.0-16.0); Mean Corpuscular HGB CONC 30.3 g/dL (32.0-36.0); Mean Corpuscular Hemoglobin 26.8 pg (27.0-31.0); Mean Corpuscular Volume 88.4 fL (78.0-98.0); Mean Platelet Volume 9.7 fL (7.4-10.4); Platelet Count 168 10x3/uL (130-400); RBC Distribution Width 17.8 % (11.5-14.5)
[2024-10-19 07:03] LABS: Chloride 102 mmol/L (98-107); Potassium 3.9 mmol/L (3.5-5.1); Sodium 140 mmol/L (136-145)
[2024-10-19 07:04] LABS: Calcium 9.1 mg/dL (7.8-10.44); Glucose 92 mg/dL (83-110)
[2024-10-19 07:06] LABS: Anion Gap 18 mmol/L (10-20); Carbon Dioxide 24 mmol/L (23-31)
[2024-10-19 07:08] LABS: BUN (Urea Nitrogen) 8 mg/dL (9.8-20.1); Calc. Creatinine Clearance 35 mL/min (70-130); Estimated GFR 23
[2024-10-19 08:17] LABS: Hematocrit 24.2 % (36.0-47.0); Hemoglobin 7.2 g/dL (12.0-16.0)
[2024-10-19] MEDS: fentaNYL 50 mcg/mL 1 mL Vial SLOW IVP PRN (09:20)
[2024-10-19] MEDS: Cefepime 1 GM in Sodium Chloride 0.9% 100 ML IVPB SCH (19:54)
[2024-10-20 05:24] LABS: #Basophils Less than 0.03 10x3/uL (0.0-0.2); %Basophils 0.3 % (0.0-1.0); %Eosinophils 1.5 % (0.0-10.0); %Lymphocytes 9.1 % (21.0-51.0); %Monocytes 10.5 % (0.0-10.0); %Neutrophils 77.4 % (42.0-75.0); Hematocrit 24.6 % (36.0-47.0); Hemoglobin 7.5 g/dL (12.0-16.0); Mean Corpuscular HGB CONC 30.5 g/dL (32.0-36.0); Mean Corpuscular Hemoglobin 26.8 pg (27.0-31.0); Mean Corpuscular Volume 87.9 fL (78.0-98.0); Mean Platelet Volume 9.6 fL (7.4-10.4); Platelet Count 182 10x3/uL (130-400); RBC Distribution Width 17.9 % (11.5-14.5)
[2024-10-20 05:46] LABS: Anion Gap 19 mmol/L (10-20); BUN (Urea Nitrogen) 15 mg/dL (9.8-20.1); Calc. Creatinine Clearance 25 mL/min (70-130); Calcium 9.6 mg/dL (7.8-10.44); Carbon Dioxide 22 mmol/L (23-31); Chloride 100 mmol/L (98-107); Estimated GFR 16; Glucose 85 mg/dL (83-110); Potassium 3.9 mmol/L (3.5-5.1); Sodium 137 mmol/L (136-145)
[2024-10-20] MEDS ORDERED: Albumin 25% 25 GM (100 mL) BOT IVPB PRN (06:26)
[2024-10-20 07:59] LABS: Vancomycin, Trough 17.6 ug/mL
[2024-10-20] MEDS ORDERED: Heparin 10,000 UNITS/ 10 ML VIAL ONE (08:49)
[2024-10-20] MEDS: Vancomycin 1 GM in Premix 1 BAG IVPB SCH (16:48)
[2024-10-21 05:34] LABS: #Basophils Less than 0.03 10x3/uL (0.0-0.2); %Basophils 0.4 % (0.0-1.0); %Eosinophils 1.3 % (0.0-10.0); %Lymphocytes 7.6 % (21.0-51.0); %Monocytes 9.8 % (0.0-10.0); Hematocrit 22.8 % (36.0-47.0); Hemoglobin 6.8 g/dL (12.0-16.0); Mean Corpuscular HGB CONC 29.8 g/dL (32.0-36.0); Mean Corpuscular Hemoglobin 26.4 pg (27.0-31.0); Mean Corpuscular Volume 88.4 fL (78.0-98.0); Mean Platelet Volume 9.8 fL (7.4-10.4); Platelet Count 149 10x3/uL (130-400); RBC Distribution Width 17.9 % (11.5-14.5); Red Blood Cell (RBC) Count 2.58 mill/uL (4.20-5.40)
[2024-10-21 05:49] LABS: Anion Gap 18 mmol/L (10-20); BUN (Urea Nitrogen) 5 mg/dL (9.8-20.1); Calc. Creatinine Clearance 40 mL/min (70-130); Calcium 9.4 mg/dL (7.8-10.44); Carbon Dioxide 25 mmol/L (23-31); Chloride 103 mmol/L (98-107); Estimated GFR 28; Glucose 79 mg/dL (83-110); Potassium 4.1 mmol/L (3.5-5.1); Sodium 142 mmol/L (136-145)
[2024-10-21 08:33] LABS: Iron 15 ug/dL (50-170); Iron Binding Capacity, Total 44 mcg/dL (265-497)
[2024-10-21] MEDS: Prochlorperazine Maleate 5 MG TAB PO SCH (10:12)
[2024-10-21 15:57] VITALS: BP 120/70; TEMP 97.5
[2024-10-21] MEDS ORDERED: Heparin 5,000 UNITS/ML VIAL SC SCH (21:00)
== END 2024-10-21 17:00 | disposition home health service (06) | DRG 570 ==
LOC: ERS 17:12 → SUATTDRO 17:12 → 2NO 20:14 → SURG B 10-05 16:19
PROVIDERS: ADMIT Family Medicine; ATTEND Internal Medicine
PROC: 0HB7XZZ Excision of Abdomen Skin, External Approach (ICD-10-PCS; 2024-09-29)
PROC: 30233J1 Transfusion of Nonautologous Serum Albumin into Peripheral Vein, Percutaneous Approach (ICD-10-PCS; 2024-09-30)
PROC: 5A09457 Assistance with Respiratory Ventilation, 24-96 Consecutive Hours, Continuous Positive Airway Pressure (ICD-10-PCS; 2024-09-30)
PROC: 4A133R1 Monitoring of Arterial Saturation, Peripheral, Percutaneous Approach (ICD-10-PCS; 2024-10-02)
PROC: 0JB80ZZ Excision of Abdomen Subcutaneous Tissue and Fascia, Open Approach (ICD-10-PCS; principal; 2024-10-13)
PROC: 30233N1 Transfusion of Nonautologous Red Blood Cells into Peripheral Vein, Percutaneous Approach (ICD-10-PCS; 2024-10-21)
DX: L03.311 Cellulitis of abdominal wall (principal); J96.02 Acute respiratory failure with hypercapnia; J96.21 Acute and chronic respiratory failure with hypoxia; N17.0 Acute kidney failure with tubular necrosis; N18.6 End stage renal disease; E11.52 Type 2 diabetes mellitus with diabetic peripheral angiopathy with gangrene; I13.0 Hypertensive heart and chronic kidney disease with heart failure and stage 1 through stage 4 chronic kidney disease, or unspecified chronic kidney disease; I50.32 Chronic diastolic (congestive) heart failure; I96 Gangrene, not elsewhere classified; N39.0 Urinary tract infection, site not specified; G93.40 Encephalopathy, unspecified; Z68.41 Body mass index [BMI] 40.0-44.9, adult; E66.2 Morbid (severe) obesity with alveolar hypoventilation; L03.314 Cellulitis of groin; Z66 Do not resuscitate; G47.33 Obstructive sleep apnea (adult) (pediatric); F32.A Depression, unspecified; F41.9 Anxiety disorder, unspecified; R00.0 Tachycardia, unspecified; E11.22 Type 2 diabetes mellitus with diabetic chronic kidney disease; E87.6 Hypokalemia; D63.1 Anemia in chronic kidney disease; D50.9 Iron deficiency anemia, unspecified; M61.9 Calcification and ossification of muscle, unspecified; I34.0 Nonrheumatic mitral (valve) insufficiency; L98.499 Non-pressure chronic ulcer of skin of other sites with unspecified severity; M79.3 Panniculitis, unspecified; S31.104A Unspecified open wound of abdominal wall, left lower quadrant without penetration into peritoneal cavity, initial encounter; Z53.9 Procedure and treatment not carried out, unspecified reason; Z99.2 Dependence on renal dialysis; Z88.5 Allergy status to narcotic agent; Z88.8 Allergy status to other drugs, medicaments and biological substances; Z90.710 Acquired absence of both cervix and uterus; Z90.49 Acquired absence of other specified parts of digestive tract; Z98.84 Bariatric surgery status; Z98.890 Other specified postprocedural states; E03.9 Hypothyroidism, unspecified; J45.909 Unspecified asthma, uncomplicated; B37.9 Candidiasis, unspecified
CPT/HCPCS: 36415; 36416; 36430; 36600; 70450; 74176; 74178; 80048; 80053; 80069; 80202; 81001; 82728; 82805; 83540; 83550; 83605; 83735; 83970; 84100; 84484; 85014; 85018; 85025; 86141; 86704; 86706; 86803; 86850; 86900; 86901; 87040; 87077; 87086; 87340; 88305; 90935; 90945; 93005; 93010; 94002; 94660; 96374; 96375; 97139; G0257; J0208; J0692; J1100; J1171; J1644; J2371; J2405; J2704; J2916; J3010; J3370; J3475; J7050; P9016; P9047; Q0164; Q5105

== ENCOUNTER 2024-11-01 11:12 | Emergency (ER) | payer MEDICARE ==
[2024-11-01 12:32] LABS: #Basophils Less than 0.03 10x3/uL (0.0-0.2); %Basophils 0.2 % (0.0-1.0); %Eosinophils 0.5 % (0.0-10.0); %Lymphocytes 4.8 % (21.0-51.0); %Monocytes 6.6 % (0.0-10.0); %Neutrophils 87.4 % (42.0-75.0); Hematocrit 29.3 % (36.0-47.0); Hemoglobin 8.9 g/dL (12.0-16.0); Mean Corpuscular HGB CONC 30.4 g/dL (32.0-36.0); Mean Corpuscular Hemoglobin 26.9 pg (27.0-31.0); Mean Corpuscular Volume 88.5 fL (78.0-98.0); Mean Platelet Volume 9.6 fL (7.4-10.4); Platelet Count 173 10x3/uL (130-400); RBC Distribution Width 17.4 % (11.5-14.5); Red Blood Cell (RBC) Count 3.31 mill/uL (4.20-5.40)
[2024-11-01 12:51] LABS: INR-International Normal Ratio 1.3
[2024-11-01 13:05] LABS: PTT 33.5 sec (22.9-36.1)
[2024-11-01 13:09] LABS: Acetaminophen Less than 10 mcg/mL (Less than 10); Alcohol Less than 10.0 mg/dL (Less than 10); Lipase 5 U/L (8-78); Magnesium 1.8 mg/dL (1.6-2.6); Salicylate Less than 8.0 mg/dL (Less than 8.0)
[2024-11-01 13:11] LABS: ALT (SGPT) 10 U/L (Less than 34); AST (SGOT) 30 U/L (11-34); Albumin 2.3 g/dL (3.1-4.5); Alkaline Phosphatase 138 U/L (40-110); Anion Gap 18 mmol/L (10-20); BUN (Urea Nitrogen) 35 mg/dL (9.8-20.1); Bilirubin, Total 0.7 mg/dL (0.3-1.2); Calc. Creatinine Clearance 0 mL/min (70-130); Calcium 8.6 mg/dL (7.8-10.44); Carbon Dioxide 28 mmol/L (23-31); Chloride 92 mmol/L (98-107); Estimated GFR 9; Globulin 3.2 g/dL (2.4-3.5); Glucose 116 mg/dL (83-110); Potassium 3.7 mmol/L (3.5-5.1); Protein, Total 5.5 g/dL (5.8-8.1); Sodium 134 mmol/L (136-145)
== END 2024-11-01 15:33 ==
LOC: ERS 11:12
DX: T40.2X1A Poisoning by other opioids, accidental (unintentional), initial encounter (principal); R53.83 Other fatigue; R41.82 Altered mental status, unspecified; I10 Essential (primary) hypertension; G47.30 Sleep apnea, unspecified; J45.909 Unspecified asthma, uncomplicated; Z79.899 Other long term (current) drug therapy; Z99.2 Dependence on renal dialysis
CPT/HCPCS: 51701; 71045; 80053; 80307; 83605; 83690; 83735; 83880; 84443; 85025; 85610; 85730; 86850; 86900; 86901; 93005